=== PATIENT | female | born 1950 | race Caucasian/White ===

== ENCOUNTER 2018-08-27 00:41 | Outpatient (CLI) | payer MEDICARE, SELFPAY ==
--- NOTE | 2018-08-27 13:02 | DI.MAMMO_ITS ---
SYMPTOMS/DIAGNOSIS: BREAST CA SCREENING, Z12.31 MAMMOGRAMS: Mammograms were interpreted according to the usual protocol including computer analysis with CAD system, tomosynthesis and C view imaging. Comparison is with the prior examinations. No suspicious masses or microcalcifications are seen. There are stable calcifications seen within the right breast. The skin and axillae are unremarkable. IMPRESSION: No evidence for malignancy. Yearly mammography is recommended. Category 2, breast density C. MQSA ASSESSMENT OF FINDINGS: Negative with benign findings. Category 2. Patient will receive a letter notifying them of these results. Bi-RADS category C. The breasts are heterogeneously dense, which may obscure small masses.
== END 2018-08-27 01:01 ==
PROVIDERS: PCP Family Medicine; Visit Provider Family Medicine
DX: Z12.31 Encounter for screening mammogram for malignant neoplasm of breast (principal)
CPT/HCPCS: 77063; 77067

== ENCOUNTER 2018-12-19 08:02 | Outpatient (REF) | payer MEDICARE, SELFPAY | END 2018-12-19 08:22 | LOC: LBN 08:02 | PROVIDERS: PCP Family Medicine; Visit Provider Family Medicine Adult Medicine | DX: Z11.8 Encounter for screening for other infectious and parasitic diseases (principal); Z11.6 Encounter for screening for other protozoal diseases and helminthiases; Z11.0 Encounter for screening for intestinal infectious diseases; B94.8 Sequelae of other specified infectious and parasitic diseases | CPT/HCPCS: 87169; 87177 ==

== ENCOUNTER 2019-01-24 01:18 | Outpatient (CLI) | payer MEDICARE, SELFPAY ==
[2019-01-24 07:43] LABS: HCT 41.8 % (36.0-46.0); HGB 14.3 g/dL (12.0-15.5); Mean Corp. HGB Concentration 34.2 g/dL (32.0-36.0); Mean Corpuscular Volume 87.6 fL (80-95); Mean Platelet Volume 9.3 fL (8.0-11.0); Platelet Count 210 x1000/uL (130-400); RBC 4.77 m/cumm (4.00-5.20); RBC Distribution Width 13.4 % (11.7-14.6); White Blood Cell Count 4.23 k/cumm (4.4-10.8)
[2019-01-24 09:19] LABS: ALT 48 U/L (12-78); AST 33 U/L (15-37); Albumin 4.1 g/dL (3.4-5.0); Alkaline Phosphatase 63 U/L (46-116); Anion Gap 8.1 mmol/L (3-11); BUN 12 mg/dL (7-18); Bilirubin, Total 0.4 mg/dL (0.2-1.0); CO2 29.9 mmol/L (21.0-32.0); CREATININE 0.71 mg/dL (0.55-1.02); Calcium 9.2 mg/dL (8.5-10.1); Chloride 106 mmol/L (98-107); Cholesterol 218 mg/dL (50-200); Glucose 96 mg/dL (70-100); HDL Cholesterol 101 mg/dL (40-60); LDL CHOLESTEROL 93 mg/dL (<100); Potassium 4.1 mmol/L (3.5-5.1); Sodium 144 mmol/L (136-145); Total Protein 7.2 g/dL (6.4-8.2); Triglyceride 65 mg/dL (30-150); Vitamin B12 1441 pg/mL (193-986)
[2019-01-24 21:29] LABS: CRP, High Sensitivity 1.63 mg/L
[2019-01-27 14:11] LABS: Vitamin D 25 Total 63.9 ng/ml (30-100)
== END 2019-01-24 01:38 ==
PROVIDERS: PCP Family Medicine; Visit Provider Family Medicine Adult Medicine
DX: I10 Essential (primary) hypertension (principal); B60.0 Babesiosis; R53.83 Other fatigue; E78.2 Mixed hyperlipidemia; R79.82 Elevated C-reactive protein (CRP); Z79.2 Long term (current) use of antibiotics; Z13.21 Encounter for screening for nutritional disorder; Z13.6 Encounter for screening for cardiovascular disorders
CPT/HCPCS: 36415; 80053; 80061; 82306; 83721; 85027; 86141; 82607

== ENCOUNTER → 2019-05-01 11:23 | Outpatient (BNVA) | payer MEDICARE, SELFPAY | PROVIDERS: PCP Family Medicine; Referring Provider Family Medicine; Visit Provider Physical Therapy Assistant | DX: Z12.11 Encounter for screening for malignant neoplasm of colon (principal); Z86.010 Personal history of colon polyps; I10 Essential (primary) hypertension ==

== ENCOUNTER 2019-05-20 07:44 | Day surgery (SDC) | payer MEDICARE, SELFPAY ==
--- NOTE | 2019-05-20 06:49 | W.COLOREPORT ---
Date of service: 05/20/19 Time of Service: :33 Colonoscopy Report Date of procedure: 05/20/19 Pre-op diagnosis general: Hx of colon polyps Post-op diagnosis procedure note: other (Sigmoid diverticulosis) Procedure: Colonoscopy Surgeon: Gisela Dorsey Anesthesia proc note operative: other (General/ ASA 2/Valarie Ellis CRNA) Estimated blood loss (mL): 0 Pathology: none sent Complications: None Disposition: same day Indications: Mrs. Fernando is a pleasant 68-year-old female who was seen in the office for a follow-up colonoscopy. Her last colonoscopy was in 2009 and she was noted to have a serrated adenoma. Risks, benefits and complications have been reviewed. Complications include but are not limited to bleeding, pain, perforation, missed small lesion/polyp, sore throat, aspiration and adverse reaction to the medications. Questions were entertained and answered to their satisfaction and they wished to proceed. No guarantees were given or implied. Prep: Miralax/Dulcolax Procedure Start Time: :33 Procedure End Time: :59 Retraction Time: 19 minutes Findings: Mild sigmoid diverticulosis Procedure Description: After informed consent was obtained the patient was taken to the procedure room and placed in a left decubitous position. Monitors were applied and a time out was done. The patients name, date of , procedure, allergies to medications and metal in their body was reviewed. The patient was then sedated. Once sedated and comfortable a rectal exam was done. External exam was normal. Internal exam revealed a normal sphincter tone and no palpable masses. The scope was then introduced and retro-flexed. No internal hemorrhoids were identified. The scope was then advanced to the cecum without difficulty. The TI and appendiceal orifice were identified. The prep was adequate. The scope was then slowly retracted over 19 minutes back into the rectum. There were no polyps and no signs of inflammation. Patient did have mild sigmoid diverticulosis. The scope was removed and the patient was woken up and taken back to Same day surgery in stable condition. The patient tolerated the procedure well and there were no immediate complications. Follow up: The patient should follow up as needed if she develops changes in bowel habits or other new gastrointestinal complaints.
--- NOTE | 2019-05-20 06:51 | W.PM.DSUDISC ---
Discharge Plan Disposition Patient Disposition: HOME Condition: Good Discharge Details Reason For Visit: Colon Cancer Screening Attending Provider: Gisela Dorsey Primary Care Provider: Pam Arnett Home Meds and New Rx's Prescriptions: Continued cholecalciferol (vitamin D3) 1,000 unit capsule 3,000 unit PO DAILY RF: 0 atp fuel 2 cap PO DAILY RF: 0 valacyclovir [Valtrex] 500 mg tablet 500 mg PO DAILY RF: 0 milk thistle 175 mg tablet 175 mg PO TID RF: 0 coratin PO BID RF: 0 albuterol sulfate [Ventolin HFA] 90 mcg/actuation HFA aerosol inhaler 1 inh IH ONCE PRNRF: 0 tumeric PO BID RF: 0 omega-3 fatty acids [Fish Oil Concentrate] 1,000 mg capsule 1,000 mg PO BID RF: 0 magnesium amino acid chelate 27 mg tablet 75 mg PO HS RF: 0 cbd oil PO QHS RF: 0 cbd silk topical PRNRF: 0 Restasis 0.05 % dropperette 1 drp OP Q12H RF: 0 dexamethasone 0.5 mg/5 mL elixir 0.5 mg PO BID PRNRF: 0 PROGONOL 0.25 tsp Topical BID RF: 0 Women's 50+ Daily Form (gkb) 1 EACH tablet 2 ea PO DAILY RF: 0 hydrochlorothiazide 12.5 MG tablet 12.5 mg PO DAILY Qty: 90 RF: 4 ALOE NUTRITIONAL 120 ML liquid 2 oz PO BID RF: 0 diphenhydramine-acetaminophen [Tylenol PM Extra Strength] 25-500 mg Tablet 2 tab PO HS PRNRF: 0 Restasis 0.05 % Dropperette 1 drp OPHTHALMIC (EYE) BID RF: 0 No Action Refresh Repair 0.5-0.9 % Drops 1 drp OPHTHALMIC (EYE) BID-QID PRNRF: 0 Discharge Instructions Instructions: Colonoscopy (GEN), Diverticulosis (ED) Additional Instructions: Findings: Diverticulosis Follow up: as needed Please call if you develop: fevers >101.5 Nausea or Vomiting Abdominal pain that is not transient DAY SURGERY UNIT POST COLONOSCOPY INSTRUCTIONS 1. Because there will be medication in your system for the next 24 hours, you may feel a little sleepy. Your coordination will be affected. Therefore: a. Do not drive or operate dangerous equipment for 24 hours. b. Do not drink alcohol beverages for 24 hours (not even beer). c. Plan to go home and rest for the day. 2. Generally there are no restrictions on your activity after a day or so has gone by, but you may feel a bit fatigued for a few days. 3 After you arrive home you may have a light meal and return to a normal diet as you can tolerate it without feeling sick to your stomach. 4. After surgery, you may feel pain or discomfort. This should be only transient, but if it persists please contact your doctor. 5. If there are any questions regarding the findings of your procedure, please feel free to contact your doctor. 6. If you are unable to contact your doctor with a problem, contact the hospital at [phone]. 7. Continue all your regular medications unless directed otherwise. I understand the above instructions and have no questions. Signature of Patient or Responsible Adult Escort Date/Time Name of Responsible Adult Escort Signature of Nurse Date/Time Activity:: Activity as Tolerated Diet:: high fiber diet Discharge Orders Discharge Orders: Discharge Order (Routine); Ordered 05/20/19 Ordered By: Gisela Dorsey DS: Diagnosis Discharge Diagnosis (1) S/P colonoscopy: (2) Diverticulosis:
[2019-05-20 08:04] VITALS: BP 130/69; PULSE 67; RESP 16; TEMP 36.5; O2SAT 98
[2019-05-20 08:19] VITALS: BP 130/69; PULSE 67; RESP 16; TEMP 36.5; O2SAT 98
[2019-05-20] MEDS: Lactated Ringers 1,000 ML 80 ML IV (08:30)
[2019-05-20] MEDS: Lidocaine 2% Pres-Free 5 ML VIAL (09:30)
[2019-05-20] MEDS: PROPOFOL 500 MG/50 ML BTL 287 MG (09:30)
[2019-05-20 10:38] VITALS: BP 99/49; PULSE 57; RESP 16; TEMP 36; O2SAT 99
== END 2019-05-20 11:10 | disposition home or self-care (01) ==
PROVIDERS: PCP Family Medicine; Visit Provider Surgery
PROC: 0DJD8ZZ Inspection of Lower Intestinal Tract, Via Natural or Artificial Opening Endoscopic (ICD-10-PCS; CPT 45378; principal; 2019-05-20 09:15)
DX: Z12.11 Encounter for screening for malignant neoplasm of colon (principal); Z86.010 Personal history of colon polyps; K57.30 Diverticulosis of large intestine without perforation or abscess without bleeding; I10 Essential (primary) hypertension
CPT/HCPCS: G0105

== ENCOUNTER 2020-02-26 10:29 | Outpatient (CLI) | payer MEDICARE, SELFPAY ==
[2020-02-27 15:31] LABS: COVID-19 RT-PCR Result NEGATIVE (Negative)
== END 2020-02-26 10:49 ==
PROVIDERS: PCP Family Medicine; Visit Provider Nurse Practitioner Family
DX: R05 Cough (principal)
CPT/HCPCS: U0003

== ENCOUNTER 2020-11-18 09:45 | Emergency (ER) | payer MEDICARE, MEDICAID, SELFPAY ==
[2020-11-18 09:49] VITALS: BP 166/62; PULSE 110; TEMP 37; O2SAT 98
--- NOTE | 2020-11-18 10:10 | ED.GENADUL_ITS ---
Discharge Plan Disposition Patient Disposition: HOME Condition: Improving Discharge Details Clinical Impression: Tear of left supraspinatus tendon Primary Care Provider: Pam Arnett ED Provider: Wm Moreno Home Meds and New Rx's Prescriptions: New oxycodone-acetaminophen [Percocet] 5-325 mg tablet 1 tab PO Q6H PRN (Reason: pain) Qty: 7 RF: 0 Continued cholecalciferol (vitamin D3) 1,000 unit capsule 3,000 unit PO DAILY RF: 0 atp fuel 2 cap PO DAILY RF: 0 valacyclovir [Valtrex] 500 mg tablet 500 mg PO DAILY RF: 0 milk thistle 175 mg tablet 175 mg PO TID RF: 0 coratin PO BID RF: 0 albuterol sulfate [Ventolin HFA] 90 mcg/actuation HFA aerosol inhaler 1 inh IH ONCE PRNRF: 0 tumeric PO BID RF: 0 omega-3 fatty acids [Fish Oil Concentrate] 1,000 mg capsule 1,000 mg PO BID RF: 0 magnesium amino acid chelate 27 mg tablet 75 mg PO HS RF: 0 cbd oil PO QHS RF: 0 cbd silk topical PRNRF: 0 Restasis 0.05 % dropperette 1 drp OP Q12H RF: 0 dexamethasone 0.5 mg/5 mL elixir 0.5 mg PO QID RF: 0 PROGONOL 0.25 tsp Topical BID RF: 0 Women's 50+ Daily Form (gkb) 1 EACH tablet 2 ea PO DAILY RF: 0 hydrochlorothiazide 12.5 MG tablet 12.5 mg PO DAILY Qty: 90 RF: 4 ALOE NUTRITIONAL 120 ML liquid 2 oz PO BID RF: 0 pimecrolimus 1 % cream 1 applic TOPICAL BID PRNRF: 0 lidocaine-prilocaine 2.5-2.5 % cream 1 applic topical BID PRNRF: 0 dicyclomine 20 mg Tablet 10 mg PO TID RF: 0 benzonatate 100 mg capsule 100 mg PO TID PRNRF: 0 Prevalite 4 gram Powder In Packet 4 g PO DAILY RF: 0 diphenhydramine-acetaminophen [Tylenol PM Extra Strength] 25-500 mg Tablet 2 tab PO HS PRNRF: 0 Restasis 0.05 % Dropperette 1 drp OPHTHALMIC (EYE) BID RF: 0 Refresh Repair 0.5-0.9 % Drops 1 drp OPHTHALMIC (EYE) BID-QID PRNRF: 0 Discharge Instructions Additional Instructions: Please continue use of sling as needed for comfort. Follow-up in orthopedics. The office number is [id number]. Tylenol as needed for pain or may use Percocet, as prescribed as needed for severe pain. Do not take both Percocet and Tylenol at the same time. Return for any acute concerns. Referrals: Arias Cabrales MD [ [facility] STAFF PHYSICIAN] - Medical Decision Making 70-year-old female presents from home with report of fall on October 18 in which she used her ski poles to awkwardly lift herself out of deep snow. She then developed severe left shoulder pain which has been persistent. She was seen by her primary care physician in [facility] and an outpatient x-ray was obtained and negative. I did review the x-ray which she had brought on a compact disc. Given the persistence of the patient's pain, high level of concern for rotator cuff injury given her exam, she was referred for MRI which reveals left supraspinatus tendon tear. Patient improved following analgesia. She requested discharge to home. She will require follow-up in orthopedic clinic. [facility] General Mode of arrival: ambulatory . Date/Time Provider Initiated Documentation: 11/18/20 09:46 . Limitations to Documentation: no limitations . Information obtained by: patient . History of Present Illness 70 year old F presents to the emergency department with the chief complaint of Left shoulder pain since fall on October 18, described as moderate, Quality is described as dull and constant, and is localized to the left and upper extremity. Patient reports no radiation. Patient started experiencing this day(s) and it has been intermittent. Rest improves symptom(s), Movement worsens symptoms . Patient notes weakness. Patient did receive the following treatments prior to arrival, cold therapy Related Data Home Medications Medication Instructions Recorded Confirmed Progonol 0.25 tsp TOPICAL BID 01/15/13 05/20/19 Women's 50+ Daily Form (gkb) 2 ea PO DAILY 09/08/14 11/18/20 hydrochlorothiazide 12.5 mg PO DAILY #90 tab-cap 03/23/15 11/18/20 ALOE NUTRITIONAL 2 oz PO BID 05/01/19 05/20/19 albuterol sulfate 90 mcg/actuation 1 inh IH ONCE PRN 05/01/19 11/18/20 aerosol inhaler atp fuel 2 cap PO DAILY 05/01/19 05/20/19 cbd oil PO QHS 05/01/19 cbd silk TOPICAL PRN 05/01/19 cholecalciferol (vitamin D3) 25 3,000 unit PO DAILY 05/01/19 11/18/20 mcg (1,000 unit) capsule coratin PO BID 05/01/19 cyclosporine 0.05 % eye drops in a 1 drp OP Q12H 05/01/19 05/01/19 dropperette dexamethasone 0.5 mg/5 mL oral 0.5 mg PO QID 05/01/19 11/18/20 elixir magnesium amino acid chelate 27 mg 75 mg PO HS 05/01/19 11/18/20 tablet milk thistle 175 mg tablet 175 mg PO TID tab 05/01/19 11/18/20 omega-3 fatty acids 1,000 mg 1,000 mg PO BID 05/01/19 11/18/20 capsule tumeric PO BID 05/01/19 valacyclovir 500 mg tablet 500 mg PO DAILY 05/01/19 11/18/20 Restasis 1 drp OPHTHALMIC (EYE) BID 05/15/19 11/18/20 diphenhydramine-acetaminophen 2 tab PO HS PRN 05/15/19 11/18/20 [Tylenol PM Extra Strength] Refresh Repair 1 drp OPHTHALMIC (EYE) BID-QID PRN 05/20/19 11/18/20 Prevalite 4 g PO DAILY 11/18/20 11/18/20 benzonatate 100 mg PO TID PRN 11/18/20 11/18/20 dicyclomine 10 mg PO TID 11/18/20 11/18/20 lidocaine-prilocaine 1 applic TOPICAL BID PRN 11/18/20 11/18/20 oxycodone-acetaminophen [Percocet] 1 tab PO Q6H PRN #7 tab 11/18/20 pimecrolimus 1 applic TOPICAL BID PRN 11/18/20 11/18/20 Previous Rx's Medication Instructions Recorded oxycodone-acetaminophen [Percocet] 1 tab PO Q6H PRN #7 tab 11/18/20 Allergies Allergy/AdvReac Type Severity Reaction Status Date / Time latex Allergy Unknown ITCHING Verified 11/18/20 09:55 atorvastatin AdvReac Other (See Verified 11/18/20 09:55 Comment) NSAIDS (Non-Steroidal AdvReac Swelling/Ed Verified 11/18/20 09:55 Anti-Inflamma ny pravastatin AdvReac MYALGIA ; Verified 11/18/20 09:55 DIARRHEA simvastatin AdvReac DIARRHEA Verified 11/18/20 09:55 General Stated Complaint: Orthopedic DIPAK: 4 Review of Systems Narrative: No other injury. She is otherwise been well. 6 systems reviewed and negative. No numbness, tingling. Reports weakness in inability to lift overhead left side [facility] Medical History Babesiosis 1987 Blepharitis of both eyes Diverticulosis HTN (hypertension) Hyperlipidemia Non-alcoholic fatty liver disease Oral lichen planus Osteoarthritis knee Shingles 01/13/2019 Zoon's vulvitis 2004 Surgical History Cholecystectomy (~02/2010) History of cataract extraction with lens replacement bilaterally Hx of arthroscopy of left knee meniscus repair Hx of biopsy vulvar punch biopsy S/P colonoscopy 2010- sessile serrated adenoma Family History Mother Essential hypertension Diabetes Heart disease Hyperlipidemia Father Essential hypertension Diabetes Heart disease Hyperlipidemia Sister Personal history of malignant neoplasm CERVICAL Hyperlipidemia Grandfather Heart disease Grandfather No problems noted. Grandmother Heart disease Grandmother Essential hypertension Diabetes Heart disease Hyperlipidemia Social History (Updated 05/01/19 @ 11:54 by Celina Alas RN) Smoking/Tobacco Use Status: Former Tobacco Use Quit Date: 10/15/72 Smoking risk assessment performed?: Yes Alcohol Intake: never Drug use: Never Substance use type: does not use Do you feel safe at home: Yes Do you feel safe in your relationship?: Yes Exam Narrative Exam Narrative: GEN: awake, alert, oriented 3. Pleasant, well groomed, interactive. HEAD: Normocephalic, atraumatic ENT: Mucous membranes moist, oropharynx unremarkable, External ear exam unremarkable EYES: PERRL, EOMI NECK: Full ROM, no FANY, no menigismus CHEST/RESP: Nontender, clear to auscultation bilateral, no wheeze/rhonchi/rales CARDIOVASCULAR: RRR, no murmur, rub veronica. 2+ Rad pulse bilateral EXT: No edema or rash. Normal capillary refill. Right upper extremity unremarkable. Left upper extremity with weakness in abduction of the humerus. Patient is unable to perform empty can test. Tenderness along left supraspinatus posteriorly. Distal motor function normal with normal sensation. Neuro: Grossly normal neurologic exam, conversant, interactive. Psych: Speech fluent, thoughts congruent, affect normal Course Vital Signs Vital signs: Vital Signs Temperature 37.0 C 11/18/20 09:49 Pulse 110 H 11/18/20 09:49 Blood Pressure 166/62 H 11/18/20 09:49 Pulse Oximetry 98 11/18/20 09:49 Temperature 37.0 C 11/18/20 09:49 Temperature Source Temporal Artery Scan 11/18/20 09:49 Pulse 110 H 11/18/20 09:49 Respiratory Effort Non-Labored 11/18/20 09:53 Blood Pressure 166/62 H 11/18/20 09:49 Blood Pressure Position Sitting 11/18/20 09:49 Pulse Oximetry 98 11/18/20 09:49 Oxygen Delivery Method Room Air 11/18/20 09:49 Oxygen Flow Rate 0 11/18/20 09:49 Pain Level 8 11/18/20 09:49
--- NOTE | 2020-11-18 10:25 | DI.MRI_ITS ---
EXAM: MR UPPER JOINT LT WO CLINICAL HISTORY: Fall, L shoulder pain, r/o rotator cuff inj. TECHNIQUE: Multiplanar multisequence MRI was performed. COMPARISON: No exams were available for comparison FINDINGS: BONES: There is no fracture or contusion pattern. Small subchondral cyst in the humeral head laterall y. JOINTS: Moderate degenerative changes are seen at the acromioclavicular joint. The glenohumeral join t is normal. TENDONS: Supraspinatus: There is a small bursal surface tear of the supraspinatus tendon anteriorly at its ins ertion site. There is tendinosis of the supraspinatus tendon. Infraspinatus: There is tendinosis of the infraspinatus tendon. Subscapularis: Unremarkable. Teres Minor: Unremarkable. Biceps and Minerva: Unremarkable. MUSCLES: Unremarkable. GLENOID LABRUM: Unremarkable on this noncontrast examination. SOFT TISSUES: Unremarkable. LIGAMENTS: Unremarkable. OTHER: There is a small amount of fluid in the subacromial subdeltoid bursa. A small amount of fluid is seen in the subcoracoid bursa. IMPRESSION: 1. Partial tear of the supraspinatus tendon anteriorly at its insertion site. 2. Tendinosis of the supraspinatus and infraspinatus tendons. 3. Small amount of fluid in the subacromial subdeltoid bursa. 4. Degenerative changes at the acromioclavicular joint. 5. Findings were discussed with the emergency department on the date of the examination. DATA REPOSITORY:
[2020-11-18] MEDS: oxyCODONE 5 mg/Acetaminophen 325 mg TAB 1 TAB PO (10:33)
[2020-11-18 11:33] VITALS: BP 138/63; PULSE 83; RESP 18; TEMP 37; O2SAT 96
[2020-11-18 15:05] VITALS: BP 128/62; PULSE 80; RESP 16; TEMP 37; O2SAT 96
[2020-11-18] MEDS: oxyCODONE 5 mg/Acetaminophen 325 mg TAB 2 TAB PO (15:05)
== END 2020-11-18 15:12 | disposition home or self-care (01) ==
PROVIDERS: Emergency Provider Emergency Medicine; PCP Family Medicine
DX: S46.012A Strain of muscle(s) and tendon(s) of the rotator cuff of left shoulder, initial encounter (principal); Y93.29 Activity, other involving ice and snow
CPT/HCPCS: 99284; 73221

== ENCOUNTER → 2020-11-23 09:38 | Outpatient (BNVA) | payer MEDICARE, MEDICAID, SELFPAY | PROVIDERS: PCP Family Medicine; Referring Provider Family Medicine; Visit Provider Student in an Organized Health Care Education/Training Program | DX: M75.102 Unspecified rotator cuff tear or rupture of left shoulder, not specified as traumatic (principal); M75.52 Bursitis of left shoulder; M75.42 Impingement syndrome of left shoulder; M75.22 Bicipital tendinitis, left shoulder | CPT/HCPCS: 99204; 99214 ==

== ENCOUNTER 2021-01-11 03:06 | Outpatient (CLI) | payer MEDICARE, MEDICAID, SELFPAY ==
[2021-01-11 10:39] LABS: Source Nasal/Nares
[2021-01-11 16:17] LABS: COVID-19 PCR Negative (Negative)
== END 2021-01-11 03:07 | disposition home or self-care (01) ==
LOC: LBO 03:07
PROVIDERS: PCP Family Medicine; Visit Provider Orthopaedic Surgery
DX: Z20.822 Contact with and (suspected) exposure to COVID-19 (principal); Z01.818 Encounter for other preprocedural examination
CPT/HCPCS: 87635

== ENCOUNTER 2021-04-22 11:10 | Emergency (ER) | payer MEDICARE, MEDICAID, SELFPAY ==
[2021-04-22 11:28] VITALS: BP 122/83; PULSE 99; RESP 16; TEMP 36.9; O2SAT 96
--- NOTE | 2021-04-22 12:00 | ED.GENADUL_ITS ---
Discharge Plan Disposition Patient Disposition: HOME Condition: Good Discharge Details Clinical Impression: Facial lesion Primary Care Provider: Pam Arnett ED Provider: Gladys Ortega Home Meds and New Rx's Prescriptions: New cephalexin 500 mg capsule 500 mg PO QID Qty: 28 RF: 0 Continued valacyclovir [Valtrex] 500 mg tablet 500 mg PO DAILY RF: 0 milk thistle 175 mg tablet 175 mg PO TID RF: 0 albuterol sulfate [Ventolin HFA] 90 mcg/actuation HFA aerosol inhaler 1 inh IH ONCE PRNRF: 0 cbd silk topical PRNRF: 0 dexamethasone 0.5 mg/5 mL elixir 0.5 mg PO QID PRNRF: 0 cholecalciferol (vitamin D3) 25 mcg (1,000 unit) capsule 5,000 unit PO DAILY RF: 0 Citrucel 500 mg tablet 1,000 mg PO BID RF: 0 mupirocin 2 % ointment 1 applic topical BID Qty: 15 RF: 0 hydrochlorothiazide 12.5 MG tablet 12.5 mg PO DAILY Qty: 90 RF: 4 Women's 50+ Daily Form (gkb) 400-120 mcg-mg tablet 1 tab PO DAILY RF: 0 pimecrolimus 1 % cream 1 applic TOPICAL BID PRNRF: 0 lidocaine-prilocaine 2.5-2.5 % cream 1 applic topical BID PRNRF: 0 dicyclomine 20 mg Tablet 10 mg PO TID RF: 0 benzonatate 100 mg capsule 100 mg PO TID PRNRF: 0 Prevalite 4 gram Powder In Packet 4 g PO DAILY RF: 0 oxycodone-acetaminophen [Percocet] 5-325 mg tablet 1 tab PO Q6H PRN (Reason: pain) Qty: 7 RF: 0 Restasis 0.05 % Dropperette 1 drp OPHTHALMIC (EYE) BID RF: 0 Refresh Repair 0.5-0.9 % Drops 1 drp OPHTHALMIC (EYE) BID-QID PRNRF: 0 Discharge Instructions Additional Instructions: Please follow-up with your primary care physician or schedule appointment on Sunday should this persist, you must have additional evaluation and possible biopsy at the discretion of your doctor Continue to antibiotics, I have supplied you with a new antibiotic Return for new or worsening complaints including fever, chills, spreading redness, or with any new or worsening complaints Discharge Data Discharge Date/Time-TO BE ENTERED AT DEPARTURE: 04/22/21 12:12 Medical Decision Making No obvious abscess or cellulitis, residual papule, low suspicion for sinus involvement No evidence of intraoral involvement Keflex prescription applied Patient is taking probiotics Will need follow-up with surgery or dermatology with persistent symptoms, concern regarding papular lesion, if this does not infectious, may need biopsy, patient made aware Discharged home in stable condition with stable vitals Given a threshold to return with new or worsening complaints Indication for CT imaging at this time, no evidence of erysipelas No diabetes history Medical Records Medical records reviewed: Yes I reviewed the patient's medical records. HPI General Mode of arrival: ambulatory . Date/Time Provider Initiated Documentation: 04/22/21 11:54 . Limitations to Documentation: no limitations . Information obtained by: patient . HPI Narrative: 70-year-old female presents with left-sided facial lesion. She has had it for approximately 2 weeks. She said prescription improved but is concerned because of persistent. She states that it may be painful. She denies any difficulty swelling, chest pain, shortness of breath. She states that there is increasing drainage from it last week since resolved. She states she is concerned because she is almost completed but her Bactrim prescription. She has been on this for approximately 10 days reportedly. She denies any chest pain, shortness of breath, difficulty swallowing, or any additional complaints at this time. She denies any vision change or headache. Denies any dental pain. Related Data Home Medications Medication Instructions Recorded Confirmed hydrochlorothiazide 12.5 mg PO DAILY #90 tab-cap 03/23/15 04/05/21 albuterol sulfate 90 mcg/actuation 1 inh IH ONCE PRN 05/01/19 04/05/21 aerosol inhaler cbd silk TOPICAL PRN 05/01/19 04/05/21 milk thistle 175 mg tablet 175 mg PO TID tab 05/01/19 04/05/21 valacyclovir 500 mg tablet 500 mg PO DAILY 05/01/19 04/05/21 Restasis 1 drp OPHTHALMIC (EYE) BID 05/15/19 04/05/21 Refresh Repair 1 drp OPHTHALMIC (EYE) BID-QID PRN 05/20/19 04/05/21 Prevalite 4 g PO DAILY 11/18/20 04/05/21 benzonatate 100 mg PO TID PRN 11/18/20 04/05/21 dicyclomine 10 mg PO TID 11/18/20 04/05/21 lidocaine-prilocaine 1 applic TOPICAL BID PRN 11/18/20 04/05/21 oxycodone-acetaminophen [Percocet] 1 tab PO Q6H PRN #7 tab 11/18/20 04/05/21 pimecrolimus 1 applic TOPICAL BID PRN 11/18/20 04/05/21 cholecalciferol (vitamin D3) 25 5,000 unit PO DAILY cap 11/23/20 04/05/21 mcg (1,000 unit) capsule dexamethasone 0.5 mg/5 mL oral 0.5 mg PO QID PRN 11/23/20 04/05/21 elixir methylcellulose (laxative) 500 mg 1,000 mg PO BID tab 11/23/20 04/05/21 tablet multivitamin with [id number] 1 tab PO DAILY tab 11/23/20 04/05/21 400 mcg-120 mg tablet mupirocin 2 % topical ointment 1 applic TOPICAL BID #15 g 04/05/21 04/05/21 cephalexin 500 mg PO QID #28 cap 04/22/21 Previous Rx's Medication Instructions Recorded oxycodone-acetaminophen [Percocet] 1 tab PO Q6H PRN #7 tab 11/18/20 mupirocin 2 % topical ointment 1 applic TOPICAL BID #15 g 04/05/21 cephalexin 500 mg PO QID #28 cap 04/22/21 Allergies Allergy/AdvReac Type Severity Reaction Status Date / Time latex Allergy Unknown ITCHING Verified 04/05/21 12:06 atorvastatin AdvReac Myalgia Verified 04/05/21 12:23 and diarrhea NSAIDS (Non-Steroidal AdvReac Swelling/Edema, Verified 04/05/21 12:23 Anti-Inflamma upper eyelids pravastatin AdvReac MYALGIA ; Verified 04/05/21 12:06 DIARRHEA simvastatin AdvReac Diarrhea, Verified 04/05/21 12:23 pt reports she got colitis General Stated Complaint: Cellulitis DIPAK: 3 Review of Systems All systems reviewed & are unremarkable except as noted in HPI and below PFSH Medical History Babesiosis 1987 Blepharitis of both eyes Diverticulosis HTN (hypertension) Hyperlipidemia Non-alcoholic fatty liver disease Oral lichen planus Osteoarthritis knee Shingles 01/13/2019 Zoon's vulvitis 2004 Surgical History Cholecystectomy (~02/2010) History of cataract extraction with lens replacement bilaterally Hx of arthroscopy of left knee meniscus repair Hx of biopsy vulvar punch biopsy S/P colonoscopy 2009- sessile serrated adenoma Family History Mother Essential hypertension Diabetes Heart disease Hyperlipidemia Father Essential hypertension Diabetes Heart disease Hyperlipidemia Sister Personal history of malignant neoplasm CERVICAL Hyperlipidemia Grandfather Heart disease Grandfather No problems noted. Grandmother Heart disease Grandmother Essential hypertension Diabetes Heart disease Hyperlipidemia Social History (Updated 05/01/19 @ 11:54 by Celina Alas RN) Smoking/Tobacco Use Status: Former Tobacco Use Quit Date: 10/15/72 Smoking risk assessment performed?: Yes Alcohol Intake: never Drug use: Never Substance use type: does not use Current gender identity: female Do you feel safe at home: Yes Do you feel safe in your relationship?: Yes Exam Const General: cooperative and no acute distress HENMT Other: Small lesion noted to left maxillary region, no erythema, no fluctuance, no significant swelling or erythema, no intraoral involvement papular, rounded margins, no crepitus Eyes Pupils: PERRL Resp Effort & Inspection: normal respiratory effort Cardio Rate: regular rate Skin Other: See above Neuro General: patient alert and patient oriented x3 Course Vital Signs Vital signs: Vital Signs Temperature 36.9 C 04/22/21 11:28 Pulse 99 H 04/22/21 11:28 Respiratory Rate 16 04/22/21 11:28 Blood Pressure 122/83 04/22/21 11:28 Pulse Oximetry 96 04/22/21 11:28 Temperature 36.9 C 04/22/21 11:28 Temperature Source Skin 04/22/21 11:28 Pulse 99 H 04/22/21 11:28 Respiratory Rate 16 04/22/21 11:28 Blood Pressure 122/83 04/22/21 11:28 Blood Pressure Position Sitting 04/22/21 11:28 Pulse Oximetry 96 04/22/21 11:28 Oxygen Delivery Method Room Air 04/22/21 11:28 Oxygen Flow Rate 0 04/22/21 11:28 Pain Level 2 04/22/21 11:28
== END 2021-04-22 12:12 | disposition home or self-care (01) ==
PROVIDERS: Emergency Provider Physician Assistant; PCP Family Medicine
DX: L98.8 Other specified disorders of the skin and subcutaneous tissue (principal)
CPT/HCPCS: 99283

== ENCOUNTER 2021-04-26 16:31 | Outpatient (REF) | payer MEDICARE, MEDICAID, SELFPAY ==
[2021-04-26 21:12] LABS: ALT 29 U/L (14-59); AST 23 U/L (15-37); Albumin 4.3 g/dL (3.4-5.0); Alkaline Phosphatase 66 U/L (46-116); Anion Gap 13.2 mmol/L (3-11); BUN 13 mg/dL (7-18); Bilirubin, Total 0.3 mg/dL (0.2-1.0); CO2 25.8 mmol/L (21.0-32.0); CREATININE 0.7 mg/dL (0.55-1.02); Calcium 9.4 mg/dL (8.5-10.1); Chloride 104 mmol/L (98-107); Glucose 98 mg/dL (74-106); Potassium 3.6 mmol/L (3.5-5.1); Sodium 143 mmol/L (136-145); Total Protein 7.4 g/dL (6.4-8.2)
[2021-04-27 20:07] LABS: Calculated LDL 160 mg/dL (<100); Cholesterol 267 mg/dL (<200); HDL Cholesterol 89 mg/dL (40-60); Triglyceride 91 mg/dL (<150)
== END 2021-04-26 16:32 | disposition home or self-care (01) ==
LOC: NCHCN 16:31
PROVIDERS: PCP Family Medicine; Visit Provider Nurse Practitioner Family
DX: E78.5 Hyperlipidemia, unspecified (principal); I10 Essential (primary) hypertension
CPT/HCPCS: 80053; 80061

== ENCOUNTER 2021-06-17 02:29 | Outpatient (CLI) | payer MEDICARE, MEDICAID, SELFPAY ==
[2021-06-17 11:16] LABS: Abs Immature Grans 0.02 10^3/uL (0.0-0.06); Absolute Basophil Count 0.03 10^3/uL (0.0-0.2); Absolute Eosinophil Count 0.05 10^3/uL (0.0-0.7); Absolute Lymphocyte Count 1.89 10^3/uL (1.2-3.4); Absolute Monocyte Count 0.46 10^3/uL (0.1-0.8); Absolute Neutrophil Count 3.81 10^3/uL (1.2-6.7); Basophils % 0.5; Eosinophils % 0.8; HCT 41.7 % (36.0-46.0); HGB 13.7 g/dL (11.2-15.7); Immature Grans % 0.3; Lymphocytes % 30.2; MCH 30.4 pg (27.0-33.0); MCHC 32.9 % (32.0-36.0); MCV 92.5 fL (80-95); MPV 9.4 fL (8.0-11.0); Monocytes % 7.3; Neutrophils % 60.9; Nucleated RBC 0 %; Platelet Count 192 10^3/uL (130-400); RBC 4.51 10^6/uL (3.93-5.22); RDW 13.2 % (11.7-14.6); RDW-SD 45.1 fL; WBC 6.26 10^3/uL (4.4-10.8)
[2021-06-17 12:58] LABS: ALT 46 U/L (14-59); AST 28 U/L (15-37); Albumin 4.1 g/dL (3.4-5.0); Alkaline Phosphatase 66 U/L (46-116); Anion Gap 11.8 mmol/L (3-11); BUN 18 mg/dL (7-18); Bilirubin, Total 0.6 mg/dL (0.2-1.0); CO2 26.2 mmol/L (21.0-32.0); CREATININE 0.7 mg/dL (0.55-1.02); Calcium 9.1 mg/dL (8.5-10.1); Chloride 104 mmol/L (98-107); Glucose 105 mg/dL (74-106); Potassium 3.6 mmol/L (3.5-5.1); Sodium 142 mmol/L (136-145)
== END 2021-06-17 02:30 | disposition home or self-care (01) ==
LOC: LBO 02:29
PROVIDERS: PCP Family Medicine; Visit Provider Naturopath
DX: L08.9 Local infection of the skin and subcutaneous tissue, unspecified (principal); Z79.2 Long term (current) use of antibiotics
CPT/HCPCS: 36415; 80053; 85025

== ENCOUNTER 2021-06-27 16:33 | Outpatient (REF) | payer MEDICARE, MEDICAID, SELFPAY ==
[2021-06-29 13:02] LABS: Campylobacter PCR Negative (Negative); Salmonella PCR Negative (Negative); Shiga Toxin PCR Negative (Negative); Shigella/Enteroinvasive Ecoli Negative (Negative)
== END 2021-06-27 16:34 | disposition home or self-care (01) ==
LOC: LBN 16:33
PROVIDERS: PCP Family Medicine; Visit Provider Naturopath
DX: R19.7 Diarrhea, unspecified (principal)
CPT/HCPCS: 87329; 87493; 87505

== ENCOUNTER 2021-06-28 10:50 | Outpatient (REF) | payer MEDICARE, MEDICAID, SELFPAY ==
[2021-06-28 15:00] LABS: C Diff PCR Negative (Negative)
== END 2021-06-28 10:51 | disposition home or self-care (01) ==
LOC: LBN 10:50
PROVIDERS: PCP Family Medicine; Referring Provider Naturopath; Visit Provider Naturopath
DX: R19.7 Diarrhea, unspecified (principal)
CPT/HCPCS: 87493

== ENCOUNTER 2021-07-29 02:34 | Outpatient (CLI) | payer MEDICARE, MEDICAID, SELFPAY ==
[2021-07-29 09:35] LABS: Abs Immature Grans 0.07 10^3/uL (0.0-0.06); Absolute Basophil Count 0.04 10^3/uL (0.0-0.2); Absolute Eosinophil Count 0.11 10^3/uL (0.0-0.7); Absolute Lymphocyte Count 1.54 10^3/uL (1.2-3.4); Absolute Monocyte Count 0.45 10^3/uL (0.1-0.8); Absolute Neutrophil Count 2.39 10^3/uL (1.2-6.7); Basophils % 0.9; Eosinophils % 2.4; HCT 41.5 % (36.0-46.0); HGB 13.6 g/dL (11.2-15.7); Immature Grans % 1.5; Lymphocytes % 33.5; MCH 31.1 pg (27.0-33.0); MCHC 32.8 % (32.0-36.0); MPV 9.1 fL (8.0-11.0); Monocytes % 9.8; Neutrophils % 51.9; Nucleated RBC 0 %; Platelet Count 164 10^3/uL (130-400); RBC 4.37 10^6/uL (3.93-5.22); RDW 12.8 % (11.7-14.6); RDW-SD 44.5 fL
[2021-07-29 10:13] LABS: ALT 64 U/L (14-59); AST 34 U/L (15-37); Albumin 4.2 g/dL (3.4-5.0); Alkaline Phosphatase 62 U/L (46-116); Anion Gap 6.8 mmol/L (3-11); BUN 14 mg/dL (7-18); Bilirubin, Total 0.4 mg/dL (0.2-1.0); CO2 31.2 mmol/L (21.0-32.0); CREATININE 0.8 mg/dL (0.55-1.02); Calcium 9.3 mg/dL (8.5-10.1); Calculated LDL 63 mg/dL (<100); Chloride 106 mmol/L (98-107); Cholesterol 202 mg/dL (<200); Glucose 91 mg/dL (74-106); HDL Cholesterol 111 mg/dL (40-60); Potassium 3.8 mmol/L (3.5-5.1); Sodium 144 mmol/L (136-145); Total Protein 7.3 g/dL (6.4-8.2); Triglyceride 143 mg/dL (<150)
== END 2021-07-29 02:35 | disposition home or self-care (01) ==
LOC: LBO 02:35
PROVIDERS: PCP Family Medicine; Visit Provider Naturopath
DX: E78.5 Hyperlipidemia, unspecified (principal); Z79.2 Long term (current) use of antibiotics
CPT/HCPCS: 36415; 80053; 80061; 85027; 85025

== ENCOUNTER 2021-08-26 03:59 | Outpatient (CLI) | payer MEDICARE, MEDICAID, SELFPAY ==
[2021-08-26 11:11] LABS: Abs Immature Grans 0.05 10^3/uL (0.0-0.06); Absolute Basophil Count 0.03 10^3/uL (0.0-0.2); Absolute Lymphocyte Count 1.93 10^3/uL (1.2-3.4); Absolute Monocyte Count 0.51 10^3/uL (0.1-0.8); Absolute Neutrophil Count 2.85 10^3/uL (1.2-6.7); Basophils % 0.5; Eosinophils % 1.8; HCT 42.5 % (36.0-46.0); Immature Grans % 0.9; Lymphocytes % 35.3; MCH 31.2 pg (27.0-33.0); MCHC 32.9 % (32.0-36.0); MCV 94.7 fL (80-95); MPV 9.2 fL (8.0-11.0); Monocytes % 9.3; Neutrophils % 52.2; Nucleated RBC 0 %; Platelet Count 178 10^3/uL (130-400); RBC 4.49 10^6/uL (3.93-5.22); RDW 12.7 % (11.7-14.6); RDW-SD 44.3 fL; WBC 5.47 10^3/uL (4.4-10.8)
[2021-08-26 11:51] LABS: Calcium 9.2 mg/dL (8.5-10.1)
[2021-08-26 11:52] LABS: ALT 45 U/L (14-59); AST 31 U/L (15-37); Albumin 4.3 g/dL (3.4-5.0); Alkaline Phosphatase 66 U/L (46-116); Anion Gap 8.6 mmol/L (3-11); BUN 10 mg/dL (7-18); Bilirubin, Total 0.5 mg/dL (0.2-1.0); CO2 30.4 mmol/L (21.0-32.0); CREATININE 0.7 mg/dL (0.55-1.02); Chloride 102 mmol/L (98-107); Glucose 92 mg/dL (74-106); Potassium 3.5 mmol/L (3.5-5.1); Sodium 141 mmol/L (136-145); Total Protein 7.5 g/dL (6.4-8.2)
== END 2021-08-26 04:00 | disposition home or self-care (01) ==
LOC: LBO 03:59
PROVIDERS: PCP Nurse Practitioner Family; Visit Provider Naturopath
DX: Z79.2 Long term (current) use of antibiotics (principal); L08.9 Local infection of the skin and subcutaneous tissue, unspecified
CPT/HCPCS: 36415; 80053; 85025

== ENCOUNTER 2022-02-23 01:48 | Outpatient (CLI) | payer MEDICARE, MEDICAID, SELFPAY ==
[2022-02-23 12:44] LABS: Abs Immature Grans 0.01 10^3/uL (0.0-0.06); Absolute Basophil Count 0.03 10^3/uL (0.0-0.2); Absolute Eosinophil Count 0.14 10^3/uL (0.0-0.7); Absolute Monocyte Count 0.74 10^3/uL (0.1-0.8); Absolute Neutrophil Count 5.75 10^3/uL (1.2-6.7); Basophils % 0.4; Eosinophils % 1.7; HCT 42.6 % (36.0-46.0); Immature Grans % 0.1; Lymphocytes % 19.3; MCH 31.1 pg (27.0-33.0); MCHC 32.9 % (32.0-36.0); MCV 95 fL (80-95); MPV 9.9 fL (8.0-11.0); Monocytes % 8.9; Neutrophils % 69.6; Platelet Count 200 10^3/uL (130-400); RDW 12.7 % (11.7-14.6); RDW-SD 43.7 fL; WBC 8.27 10^3/uL (4.4-10.8)
[2022-02-23 12:57] LABS: Iron 81 ug/dL (50-170); Total Iron Binding Capacity 331 ug/dL (250-450); Transferrin Sat 24 % (15-50)
[2022-02-23 13:27] LABS: ALT 34 U/L (14-59); AST 23 U/L (15-37); Albumin 3.7 g/dL (3.4-5.0); Alkaline Phosphatase 62 U/L (46-116); Anion Gap 11.3 mmol/L (3-11); BUN 10 mg/dL (7-18); Bilirubin, Total 0.4 mg/dL (0.2-1.0); CO2 28.7 mmol/L (21.0-32.0); CREATININE 0.7 mg/dL (0.55-1.02); Calcium 9.2 mg/dL (8.5-10.1); Chloride 103 mmol/L (98-107); Ferritin 63 ng/mL (8-252); Glucose 105 mg/dL (74-106); Potassium 3.6 mmol/L (3.5-5.1); Sodium 143 mmol/L (136-145); Total Protein 6.8 g/dL (6.4-8.2); Vitamin B12 879 pg/mL (193-986)
[2022-02-24 17:42] LABS: G6PD Enzyme Activity 9.7 U/g Hb (8.0 - 11.9)
== END 2022-02-23 01:49 | disposition home or self-care (01) ==
LOC: LOS 01:48
PROVIDERS: PCP Nurse Practitioner Family; Visit Provider Naturopath
DX: Z79.2 Long term (current) use of antibiotics (principal); R53.83 Other fatigue
CPT/HCPCS: 36415; 80053; 82955; 82607; 82728; 83540; 83550; 85025

== ENCOUNTER 2022-04-13 02:17 | Outpatient (CLI) | payer MEDICARE, MEDICAID, SELFPAY ==
[2022-04-13 12:50] LABS: Abs Immature Grans 0.01 10^3/uL (0.0-0.06); Absolute Basophil Count 0.02 10^3/uL (0.0-0.2); Absolute Eosinophil Count 0.03 10^3/uL (0.0-0.7); Absolute Lymphocyte Count 1.59 10^3/uL (1.2-3.4); Absolute Neutrophil Count 3.28 10^3/uL (1.2-6.7); Basophils % 0.4; Eosinophils % 0.6; HCT 41.4 % (36.0-46.0); HGB 13.7 g/dL (11.2-15.7); Immature Grans % 0.2; Lymphocytes % 29.3; MCH 31.1 pg (27.0-33.0); MCHC 33.1 % (32.0-36.0); MCV 94 fL (80-95); MPV 9.7 fL (8.0-11.0); Monocytes % 9.2; Neutrophils % 60.3; Platelet Count 224 10^3/uL (130-400); RBC 4.41 10^6/uL (3.93-5.22); RDW 12.2 % (11.7-14.6); RDW-SD 42.8 fL; Reticulocyte 1.6 % (0.5-2.4); WBC 5.43 10^3/uL (4.4-10.8)
[2022-04-13 13:58] LABS: ALT 34 U/L (14-59); AST 37 U/L (15-37); Albumin 2.3 g/dL (3.4-5.0); Alkaline Phosphatase 55 U/L (46-116); Anion Gap 6.7 mmol/L (3-11); BUN 15 mg/dL (7-18); Bilirubin, Total 0.2 mg/dL (0.2-1.0); CO2 27.3 mmol/L (21.0-32.0); CREATININE 0.6 mg/dL (0.55-1.02); Calcium 8.9 mg/dL (8.5-10.1); Chloride 104 mmol/L (98-107); Glucose 98 mg/dL (74-106); Potassium 3.6 mmol/L (3.5-5.1); Sodium 138 mmol/L (136-145); Total Protein 5.9 g/dL (6.4-8.2)
== END 2022-04-13 02:18 | disposition home or self-care (01) ==
LOC: LOS 02:17
PROVIDERS: PCP Nurse Practitioner Family; Visit Provider Naturopath
DX: Z79.2 Long term (current) use of antibiotics (principal); L98.8 Other specified disorders of the skin and subcutaneous tissue
CPT/HCPCS: 36415; 80053; 85025; 85045

== ENCOUNTER 2022-04-20 04:12 | Outpatient (CLI) | payer MEDICARE, MEDICAID, SELFPAY ==
[2022-04-20 12:37] LABS: Abs Immature Grans 0.02 10^3/uL (0.0-0.06); Absolute Basophil Count 0.03 10^3/uL (0.0-0.2); Absolute Eosinophil Count 0.05 10^3/uL (0.0-0.7); Absolute Lymphocyte Count 1.66 10^3/uL (1.2-3.4); Absolute Monocyte Count 0.61 10^3/uL (0.1-0.8); Absolute Neutrophil Count 3.45 10^3/uL (1.2-6.7); Basophils % 0.5; Eosinophils % 0.9; HCT 41.7 % (36.0-46.0); HGB 13.7 g/dL (11.2-15.7); Immature Grans % 0.3; Lymphocytes % 28.5; MCH 31.1 pg (27.0-33.0); MCHC 32.9 % (32.0-36.0); MCV 95 fL (80-95); MPV 9.9 fL (8.0-11.0); Monocytes % 10.5; Neutrophils % 59.3; Platelet Count 238 10^3/uL (130-400); RBC 4.41 10^6/uL (3.93-5.22); RDW 12.5 % (11.7-14.6); RDW-SD 42.9 fL; Reticulocyte 2.3 % (0.5-2.4); WBC 5.82 10^3/uL (4.4-10.8)
[2022-04-20 12:51] LABS: ALT 35 U/L (14-59); AST 32 U/L (15-37); Albumin 2.2 g/dL (3.4-5.0); Alkaline Phosphatase 60 U/L (46-116); Anion Gap 5.1 mmol/L (3-11); BUN 13 mg/dL (7-18); Bilirubin, Total 0.6 mg/dL (0.2-1.0); CO2 29.9 mmol/L (21.0-32.0); CREATININE 0.7 mg/dL (0.55-1.02); Calcium 9.1 mg/dL (8.5-10.1); Chloride 101 mmol/L (98-107); Glucose 114 mg/dL (74-106); Potassium 3.5 mmol/L (3.5-5.1); Sodium 136 mmol/L (136-145); Total Protein 5.9 g/dL (6.4-8.2)
== END 2022-04-20 04:13 | disposition home or self-care (01) ==
LOC: LOS 04:12
PROVIDERS: PCP Nurse Practitioner Family; Visit Provider Naturopath
DX: Z79.2 Long term (current) use of antibiotics (principal); L08.89 Other specified local infections of the skin and subcutaneous tissue; L98.8 Other specified disorders of the skin and subcutaneous tissue
CPT/HCPCS: 36415; 80053; 85025; 85045

== ENCOUNTER 2022-04-27 02:18 | Outpatient (CLI) | payer MEDICARE, MEDICAID, SELFPAY ==
[2022-04-27 12:24] LABS: Abs Immature Grans 0.02 10^3/uL (0.0-0.06); Absolute Basophil Count 0.04 10^3/uL (0.0-0.2); Absolute Eosinophil Count 0.07 10^3/uL (0.0-0.7); Absolute Lymphocyte Count 1.64 10^3/uL (1.2-3.4); Absolute Monocyte Count 0.56 10^3/uL (0.1-0.8); Absolute Neutrophil Count 2.88 10^3/uL (1.2-6.7); Basophils % 0.8; Eosinophils % 1.3; HCT 40.9 % (36.0-46.0); HGB 13.4 g/dL (11.2-15.7); Immature Grans % 0.4; Lymphocytes % 31.5; MCH 31.5 pg (27.0-33.0); MCHC 32.8 % (32.0-36.0); MCV 96 fL (80-95); MPV 9.9 fL (8.0-11.0); Monocytes % 10.7; Neutrophils % 55.3; Platelet Count 241 10^3/uL (130-400); RBC 4.25 10^6/uL (3.93-5.22); RDW 12.6 % (11.7-14.6); RDW-SD 44.3 fL; WBC 5.21 10^3/uL (4.4-10.8)
[2022-04-27 12:44] LABS: ALT 60 U/L (14-59); AST 54 U/L (15-37); Albumin 2.4 g/dL (3.4-5.0); Alkaline Phosphatase 59 U/L (46-116); Anion Gap 6.3 mmol/L (3-11); BUN 13 mg/dL (7-18); Bilirubin, Total 0.5 mg/dL (0.2-1.0); CO2 30.7 mmol/L (21.0-32.0); CREATININE 0.7 mg/dL (0.55-1.02); Calcium 9.1 mg/dL (8.5-10.1); Chloride 103 mmol/L (98-107); Glucose 101 mg/dL (74-106); Potassium 3.6 mmol/L (3.5-5.1); Sodium 140 mmol/L (136-145); Total Protein 6.2 g/dL (6.4-8.2)
== END 2022-04-27 02:19 | disposition home or self-care (01) ==
LOC: LOS 02:18
PROVIDERS: PCP Nurse Practitioner Family; Visit Provider Naturopath
DX: L08.89 Other specified local infections of the skin and subcutaneous tissue (principal); Z79.2 Long term (current) use of antibiotics
CPT/HCPCS: 36415; 80053; 85025; 85045

== ENCOUNTER 2022-05-04 01:06 | Outpatient (CLI) | payer MEDICARE, MEDICAID, SELFPAY ==
[2022-05-04 12:35] LABS: Abs Immature Grans 0.01 10^3/uL (0.0-0.06); Absolute Basophil Count 0.04 10^3/uL (0.0-0.2); Absolute Eosinophil Count 0.06 10^3/uL (0.0-0.7); Absolute Monocyte Count 0.62 10^3/uL (0.1-0.8); Absolute Neutrophil Count 3.78 10^3/uL (1.2-6.7); Basophils % 0.7; HCT 37.3 % (36.0-46.0); HGB 12.3 g/dL (11.2-15.7); Immature Grans % 0.2; MCH 31.8 pg (27.0-33.0); MCV 96 fL (80-95); MPV 10.2 fL (8.0-11.0); Monocytes % 10.3; Neutrophils % 62.8; Platelet Count 213 10^3/uL (130-400); RBC 3.87 10^6/uL (3.93-5.22); RDW 12.9 % (11.7-14.6); Reticulocyte 2.5 % (0.5-2.4); WBC 6.01 10^3/uL (4.4-10.8)
[2022-05-04 12:54] LABS: ALT 60 U/L (14-59); AST 52 U/L (15-37); Albumin 2.5 g/dL (3.4-5.0); Alkaline Phosphatase 60 U/L (46-116); Anion Gap 7.1 mmol/L (3-11); BUN 12 mg/dL (7-18); Bilirubin, Total 0.5 mg/dL (0.2-1.0); CO2 29.9 mmol/L (21.0-32.0); CREATININE 0.7 mg/dL (0.55-1.02); Calcium 9.3 mg/dL (8.5-10.1); Chloride 102 mmol/L (98-107); Glucose 96 mg/dL (74-106); Potassium 3.5 mmol/L (3.5-5.1); Sodium 139 mmol/L (136-145); Total Protein 5.9 g/dL (6.4-8.2)
== END 2022-05-04 01:07 | disposition home or self-care (01) ==
LOC: LOS 01:07
PROVIDERS: PCP Nurse Practitioner Family; Visit Provider Naturopath
DX: Z79.2 Long term (current) use of antibiotics (principal); Z13.89 Encounter for screening for other disorder
CPT/HCPCS: 36415; 80053; 85025; 85045

== ENCOUNTER 2022-05-10 02:51 | Outpatient (CLI) | payer MEDICARE, MEDICAID, SELFPAY ==
[2022-05-10 12:19] LABS: Abs Immature Grans 0.02 10^3/uL (0.0-0.06); Absolute Basophil Count 0.04 10^3/uL (0.0-0.2); Absolute Eosinophil Count 0.04 10^3/uL (0.0-0.7); Absolute Lymphocyte Count 1.57 10^3/uL (1.2-3.4); Absolute Monocyte Count 0.52 10^3/uL (0.1-0.8); Absolute Neutrophil Count 3.12 10^3/uL (1.2-6.7); Basophils % 0.8; Eosinophils % 0.8; HCT 37.8 % (36.0-46.0); HGB 12.5 g/dL (11.2-15.7); Immature Grans % 0.4; Lymphocytes % 29.6; MCH 31.9 pg (27.0-33.0); MCHC 33.1 % (32.0-36.0); MCV 96 fL (80-95); MPV 9.7 fL (8.0-11.0); Monocytes % 9.8; Neutrophils % 58.6; Platelet Count 214 10^3/uL (130-400); RBC 3.92 10^6/uL (3.93-5.22); RDW 13.4 % (11.7-14.6); RDW-SD 47.3 fL; WBC 5.31 10^3/uL (4.4-10.8)
[2022-05-10 12:47] LABS: ALT 57 U/L (14-59); AST 41 U/L (15-37); Albumin 2.5 g/dL (3.4-5.0); Alkaline Phosphatase 60 U/L (46-116); BUN 11 mg/dL (7-18); Bilirubin, Total 0.5 mg/dL (0.2-1.0); CREATININE 0.7 mg/dL (0.55-1.02); Calcium 9.1 mg/dL (8.5-10.1); Chloride 103 mmol/L (98-107); Glucose 130 mg/dL (74-106); Potassium 3.6 mmol/L (3.5-5.1); Sodium 138 mmol/L (136-145); Total Protein 5.9 g/dL (6.4-8.2)
== END 2022-05-10 02:52 | disposition home or self-care (01) ==
LOC: LOS 02:51
PROVIDERS: PCP Nurse Practitioner Family; Visit Provider Naturopath
DX: L08.89 Other specified local infections of the skin and subcutaneous tissue (principal); Z79.2 Long term (current) use of antibiotics
CPT/HCPCS: 36415; 80053; 85025; 85045

== ENCOUNTER 2022-05-18 02:59 | Outpatient (CLI) | payer MEDICARE, MEDICAID, SELFPAY ==
[2022-05-18 12:24] LABS: Abs Immature Grans 0.02 10^3/uL (0.0-0.06); Absolute Basophil Count 0.03 10^3/uL (0.0-0.2); Absolute Eosinophil Count 0.06 10^3/uL (0.0-0.7); Absolute Lymphocyte Count 1.55 10^3/uL (1.2-3.4); Absolute Monocyte Count 0.48 10^3/uL (0.1-0.8); Absolute Neutrophil Count 2.77 10^3/uL (1.2-6.7); Basophils % 0.6; Eosinophils % 1.2; HCT 37.5 % (36.0-46.0); HGB 12.8 g/dL (11.2-15.7); Immature Grans % 0.4; Lymphocytes % 31.6; MCH 32.5 pg (27.0-33.0); MCHC 34.1 % (32.0-36.0); MCV 95 fL (80-95); Monocytes % 9.8; Neutrophils % 56.4; Platelet Count 214 10^3/uL (130-400); RBC 3.94 10^6/uL (3.93-5.22); RDW 13.7 % (11.7-14.6); RDW-SD 48.3 fL; WBC 4.91 10^3/uL (4.4-10.8)
[2022-05-18 12:43] LABS: ALT 66 U/L (14-59); AST 48 U/L (15-37); Albumin 2.5 g/dL (3.4-5.0); Alkaline Phosphatase 62 U/L (46-116); Anion Gap 6.3 mmol/L (3-11); BUN 17 mg/dL (7-18); Bilirubin, Total 0.4 mg/dL (0.2-1.0); CO2 29.7 mmol/L (21.0-32.0); CREATININE 0.7 mg/dL (0.55-1.02); Calcium 8.7 mg/dL (8.5-10.1); Chloride 101 mmol/L (98-107); Glucose 133 mg/dL (74-106); Potassium 3.4 mmol/L (3.5-5.1); Sodium 137 mmol/L (136-145); Total Protein 6.1 g/dL (6.4-8.2)
== END 2022-05-18 03:00 | disposition home or self-care (01) ==
LOC: LOS 02:59
PROVIDERS: PCP Nurse Practitioner Family; Visit Provider Naturopath
DX: Z79.2 Long term (current) use of antibiotics (principal); L08.89 Other specified local infections of the skin and subcutaneous tissue
CPT/HCPCS: 80053; 85025; 85045

== ENCOUNTER 2022-05-25 01:36 | Outpatient (CLI) | payer MEDICARE, MEDICAID, SELFPAY ==
[2022-05-25 12:45] LABS: Abs Immature Grans 0.01 10^3/uL (0.0-0.06); Absolute Basophil Count 0.03 10^3/uL (0.0-0.2); Absolute Eosinophil Count 0.04 10^3/uL (0.0-0.7); Absolute Lymphocyte Count 1.47 10^3/uL (1.2-3.4); Absolute Monocyte Count 0.43 10^3/uL (0.1-0.8); Absolute Neutrophil Count 2.88 10^3/uL (1.2-6.7); Basophils % 0.6; Eosinophils % 0.8; HCT 36.8 % (36.0-46.0); HGB 12.5 g/dL (11.2-15.7); Immature Grans % 0.2; Lymphocytes % 30.2; MCH 32.6 pg (27.0-33.0); MCV 96 fL (80-95); MPV 9.8 fL (8.0-11.0); Monocytes % 8.8; Neutrophils % 59.4; Platelet Count 179 10^3/uL (130-400); RBC 3.83 10^6/uL (3.93-5.22); RDW 13.7 % (11.7-14.6); RDW-SD 48.2 fL; Reticulocyte 2.9 % (0.5-2.4); WBC 4.86 10^3/uL (4.4-10.8)
[2022-05-25 13:08] LABS: ALT 48 U/L (14-59); AST 42 U/L (15-37); Albumin 2.7 g/dL (3.4-5.0); Alkaline Phosphatase 53 U/L (46-116); Anion Gap 7.3 mmol/L (3-11); BUN 12 mg/dL (7-18); Bilirubin, Total 0.5 mg/dL (0.2-1.0); CO2 29.7 mmol/L (21.0-32.0); CREATININE 0.5 mg/dL (0.55-1.02); Calcium 9.1 mg/dL (8.5-10.1); Chloride 103 mmol/L (98-107); Glucose 99 mg/dL (74-106); Potassium 3.6 mmol/L (3.5-5.1); Sodium 140 mmol/L (136-145); Total Protein 6.1 g/dL (6.4-8.2)
== END 2022-05-25 01:37 | disposition home or self-care (01) ==
LOC: LOS 01:37
PROVIDERS: PCP Nurse Practitioner Family; Visit Provider Naturopath
DX: L08.89 Other specified local infections of the skin and subcutaneous tissue; Z79.2 Long term (current) use of antibiotics
CPT/HCPCS: 36415; 80053; 85025; 85045

== ENCOUNTER 2022-06-01 03:35 | Outpatient (CLI) | payer MEDICARE, MEDICAID, SELFPAY ==
[2022-06-01 12:41] LABS: Abs Immature Grans 0.02 10^3/uL (0.0-0.06); Absolute Basophil Count 0.03 10^3/uL (0.0-0.2); Absolute Eosinophil Count 0.04 10^3/uL (0.0-0.7); Absolute Lymphocyte Count 1.26 10^3/uL (1.2-3.4); Absolute Monocyte Count 0.42 10^3/uL (0.1-0.8); Basophils % 0.6; Eosinophils % 0.8; HGB 12.5 g/dL (11.2-15.7); Immature Grans % 0.4; Lymphocytes % 24.9; MCH 32.1 pg (27.0-33.0); MCHC 32.9 % (32.0-36.0); MCV 97 fL (80-95); MPV 9.7 fL (8.0-11.0); Monocytes % 8.3; Platelet Count 197 10^3/uL (130-400); RDW 13.8 % (11.7-14.6); RDW-SD 49.3 fL; Reticulocyte 2.8 % (0.5-2.4); WBC 5.07 10^3/uL (4.4-10.8)
[2022-06-01 12:57] LABS: ALT 45 U/L (14-59); AST 39 U/L (15-37); Albumin 2.7 g/dL (3.4-5.0); Alkaline Phosphatase 57 U/L (46-116); Anion Gap 7.5 mmol/L (3-11); BUN 15 mg/dL (7-18); Bilirubin, Total 0.3 mg/dL (0.2-1.0); CO2 29.5 mmol/L (21.0-32.0); CREATININE 0.6 mg/dL (0.55-1.02); Calcium 8.6 mg/dL (8.5-10.1); Chloride 104 mmol/L (98-107); Glucose 107 mg/dL (74-106); Potassium 3.4 mmol/L (3.5-5.1); Sodium 141 mmol/L (136-145); Total Protein 6.3 g/dL (6.4-8.2)
== END 2022-06-01 03:36 | disposition home or self-care (01) ==
LOC: LOS 03:35
PROVIDERS: PCP Nurse Practitioner Family; Visit Provider Naturopath
DX: L08.89 Other specified local infections of the skin and subcutaneous tissue (principal); Z79.2 Long term (current) use of antibiotics
CPT/HCPCS: 36415; 80053; 85025; 85045

== ENCOUNTER 2022-06-08 03:03 | Outpatient (CLI) | payer MEDICARE, MEDICAID, SELFPAY ==
[2022-06-08 12:35] LABS: Abs Immature Grans 0.02 10^3/uL (0.0-0.06); Absolute Basophil Count 0.03 10^3/uL (0.0-0.2); Absolute Eosinophil Count 0.06 10^3/uL (0.0-0.7); Absolute Lymphocyte Count 1.44 10^3/uL (1.2-3.4); Absolute Neutrophil Count 3.06 10^3/uL (1.2-6.7); Basophils % 0.6; Eosinophils % 1.2; HCT 37.1 % (36.0-46.0); HGB 12.5 g/dL (11.2-15.7); Immature Grans % 0.4; Lymphocytes % 28.2; MCH 33.2 pg (27.0-33.0); MCHC 33.7 % (32.0-36.0); MCV 99 fL (80-95); MPV 9.9 fL (8.0-11.0); Monocytes % 9.8; Neutrophils % 59.8; Platelet Count 186 10^3/uL (130-400); RBC 3.76 10^6/uL (3.93-5.22); RDW 13.7 % (11.7-14.6); RDW-SD 49.4 fL; Reticulocyte 2.8 % (0.5-2.4); WBC 5.11 10^3/uL (4.4-10.8)
[2022-06-08 12:52] LABS: ALT 43 U/L (14-59); AST 44 U/L (15-37); Albumin 2.8 g/dL (3.4-5.0); Alkaline Phosphatase 57 U/L (46-116); BUN 11 mg/dL (7-18); Bilirubin, Total 0.6 mg/dL (0.2-1.0); CREATININE 0.6 mg/dL (0.55-1.02); Calcium 8.8 mg/dL (8.5-10.1); Chloride 105 mmol/L (98-107); Glucose 101 mg/dL (74-106); Potassium 3.7 mmol/L (3.5-5.1); Sodium 141 mmol/L (136-145); Total Protein 6.3 g/dL (6.4-8.2)
== END 2022-06-08 03:04 | disposition home or self-care (01) ==
LOC: LOS 03:03
PROVIDERS: PCP Nurse Practitioner Family; Visit Provider Naturopath
DX: Z79.2 Long term (current) use of antibiotics (principal); L08.89 Other specified local infections of the skin and subcutaneous tissue
CPT/HCPCS: 36415; 80053; 85025; 85045

== ENCOUNTER 2022-06-16 15:35 | Outpatient (REF) | payer MEDICARE, MEDICAID, SELFPAY ==
[2022-06-16 20:56] LABS: C Diff PCR Negative (Negative)
== END 2022-06-16 15:36 | disposition home or self-care (01) ==
LOC: LBN 15:35
PROVIDERS: PCP Nurse Practitioner Family; Visit Provider Naturopath
DX: R19.7 Diarrhea, unspecified (principal)
CPT/HCPCS: 87329; 87493; 87505

== ENCOUNTER 2022-06-22 17:44 | Outpatient (REF) | payer MEDICARE, MEDICAID, SELFPAY ==
[2022-06-24 11:00] LABS: Campylobacter PCR Negative (Negative); Salmonella PCR Negative (Negative); Shiga Toxin PCR Negative (Negative); Shigella/Enteroinvasive Ecoli Negative (Negative)
[2022-06-24 17:58] LABS: Calprotectin <50.0 mcg/g
== END 2022-06-22 17:45 | disposition home or self-care (01) ==
LOC: LBN 17:44
PROVIDERS: PCP Nurse Practitioner Family; Visit Provider Naturopath
DX: R19.7 Diarrhea, unspecified (principal)
CPT/HCPCS: 87329; 87493; 87505; 83993; 87177

== ENCOUNTER 2022-06-28 13:36 | Outpatient (REF) | payer MEDICARE, MEDICAID, SELFPAY ==
--- NOTE | 2022-06-28 11:40 | SKI_PTH ---
PATIENT: Lian Fernando LOC: [facility] U#:[id number] AGE/SX: 71/F ROOM: RE06/28/[address]: Ananda Vyas MD : [id number] BED: DIS: 06/28/2022 SPEC #: [id number] RECD: 06/28/22 16:23 STATUS: HANK REQ #: [id number] JESICA: 06/28/22 11:[address]: Ananda Vyas DEPT: Surgical Specimen RECD BY: Gladys Gustafson ENTERED: 06/28/22 16:24 SP TYPE: ALDA QUINTANA DR: Lily Tadeo Tissues: 1 - SKIN BIOPSY(SHAVE/PUNCH) Procedures: SKIN LEVEL 4 Comments: [id number]
== END 2022-06-28 13:37 | disposition home or self-care (01) ==
LOC: LBN 13:36
PROVIDERS: PCP Nurse Practitioner Family; Visit Provider Otolaryngology
DX: L72.8 Other follicular cysts of the skin and subcutaneous tissue (principal)
CPT/HCPCS: 88305

== ENCOUNTER 2022-06-30 01:51 | Outpatient (CLI) | payer MEDICARE, MEDICAID, SELFPAY ==
[2022-06-30 11:12] LABS: Abs Immature Grans 0.01 10^3/uL (0.0-0.06); Absolute Basophil Count 0.03 10^3/uL (0.0-0.2); Absolute Eosinophil Count 0.03 10^3/uL (0.0-0.7); Absolute Lymphocyte Count 1.43 10^3/uL (1.2-3.4); Absolute Monocyte Count 0.42 10^3/uL (0.1-0.8); Absolute Neutrophil Count 2.95 10^3/uL (1.2-6.7); Basophils % 0.6; Eosinophils % 0.6; HCT 39.3 % (36.0-46.0); HGB 13.2 g/dL (11.2-15.7); Immature Grans % 0.2; Lymphocytes % 29.4; MCH 32.4 pg (27.0-33.0); MCHC 33.6 % (32.0-36.0); MCV 97 fL (80-95); MPV 9.1 fL (8.0-11.0); Monocytes % 8.6; Neutrophils % 60.6; Platelet Count 205 10^3/uL (130-400); RBC 4.07 10^6/uL (3.93-5.22); WBC 4.87 10^3/uL (4.4-10.8)
[2022-06-30 11:16] LABS: Reticulocyte 1.2 % (0.5-2.4)
[2022-06-30 12:03] LABS: ALT 46 U/L (14-59); AST 37 U/L (15-37); Albumin 3.1 g/dL (3.4-5.0); Alkaline Phosphatase 53 U/L (46-116); BUN 14 mg/dL (7-18); Bilirubin, Total 0.2 mg/dL (0.2-1.0); CREATININE 0.7 mg/dL (0.55-1.02); Calcium 9.2 mg/dL (8.5-10.1); Chloride 103 mmol/L (98-107); Estimated GFR 91.26 (mL/min/1.73m2); Glucose 97 mg/dL (74-106); Potassium 3.4 mmol/L (3.5-5.1); Sodium 140 mmol/L (136-145); Total Protein 6.5 g/dL (6.4-8.2)
== END 2022-06-30 01:52 | disposition home or self-care (01) ==
LOC: LBO 01:51
PROVIDERS: PCP Nurse Practitioner Family; Visit Provider Naturopath
DX: Z79.2 Long term (current) use of antibiotics (principal); L08.89 Other specified local infections of the skin and subcutaneous tissue
CPT/HCPCS: 36415; 80053; 85045; 85025

== ENCOUNTER 2022-09-21 14:48 | Outpatient (REF) | payer MEDICARE, MEDICAID, SELFPAY ==
[2022-09-21 15:13] LABS: Potassium 3.6 mmol/L (3.5-5.1)
== END 2022-09-21 14:49 | disposition home or self-care (01) ==
LOC: NCHCN 14:48
PROVIDERS: PCP Nurse Practitioner Family; Visit Provider Nurse Practitioner Family
DX: E87.6 Hypokalemia (principal)
CPT/HCPCS: 84132

== ENCOUNTER 2023-07-10 18:14 | Outpatient (REF) | payer MEDICARE, MEDICAID, SELFPAY ==
[2023-07-10 22:05] LABS: HGB 13.7 g/dL (11.2-15.7); MCH 30.6 pg (27.0-33.0); MCHC 33.4 % (32.0-36.0); MCV 92 fL (80-95); MPV 9.8 fL (8.0-11.0); Platelet Count 210 10^3/uL (130-400); RBC 4.48 10^6/uL (3.93-5.22); RDW 12.1 % (11.7-14.6); RDW-SD 40.7 fL; WBC 4.84 10^3/uL (4.4-10.8)
[2023-07-10 22:30] LABS: ALT 28 U/L (14-59); AST 24 U/L (15-37); Albumin 4.2 g/dL (3.4-5.0); Alkaline Phosphatase 71 U/L (46-116); Anion Gap 12.1 mmol/L (3-11); BUN 12 mg/dL (7-18); Bilirubin, Total 0.4 mg/dL (0.2-1.0); CO2 25.9 mmol/L (21.0-32.0); CREATININE 0.7 mg/dL (0.55-1.02); Calcium 9.6 mg/dL (8.5-10.1); Calculated LDL 81 mg/dL (<100); Chloride 100 mmol/L (98-107); Cholesterol 190 mg/dL (<200); Glucose 96 mg/dL (74-106); HDL Cholesterol 86 mg/dL (40-60); Potassium 3.8 mmol/L (3.5-5.1); Sodium 138 mmol/L (136-145); TSH (W/Ref FT4) 1.45 uIU/mL (0.36-3.74); Total Protein 7.4 g/dL (6.4-8.2); Triglyceride 116 mg/dL (<150)
[2023-07-11 18:37] LABS: Vitamin B12 655 pg/mL (193-986)
== END 2023-07-10 18:15 | disposition home or self-care (01) ==
LOC: NCHCN 18:14
PROVIDERS: PCP Nurse Practitioner Family; Visit Provider Nurse Practitioner Family
DX: Z00.00 Encounter for general adult medical examination without abnormal findings (principal); K58.9 Irritable bowel syndrome, unspecified
CPT/HCPCS: 80053; 80061; 82306; 85027; 82607; 84443

== ENCOUNTER 2024-07-11 12:25 | Outpatient (REF) | payer MEDICARE, MEDICAID, SELFPAY ==
[2024-07-11 15:03] LABS: HCT 42.5 % (36.0-46.0); MCH 30.8 pg (27.0-33.0); MCHC 32.9 % (32.0-36.0); MCV 94 fL (80-95); MPV 9.4 fL (8.0-11.0); Platelet Count 212 10^3/uL (130-400); RBC 4.54 10^6/uL (3.93-5.22); RDW 13.2 % (11.7-14.6); RDW-SD 45.2 fL; WBC 5.18 10^3/uL (4.4-10.8)
[2024-07-11 16:06] LABS: ALT 31 U/L (14-59); AST 24 U/L (15-37); Albumin 4.2 g/dL (3.4-5.0); Alkaline Phosphatase 73 U/L (46-116); BUN 14 mg/dL (7-18); Bilirubin, Total 0.43 mg/dL (0.2-1.0); CREATININE 0.8 mg/dL (0.55-1.02); Calcium 9.5 mg/dL (8.5-10.1); Calculated LDL 75 mg/dL (<100); Chloride 103 mmol/L (98-107); Cholesterol 215 mg/dL (<200); Estimated GFR 76.79 (mL/min/1.73m2); Glucose 144 mg/dL (74-106); HDL Cholesterol 124 mg/dL (40-60); Potassium 3.2 mmol/L (3.5-5.1); Sodium 140 mmol/L (136-145); TSH (W/Ref FT4) 1.11 uIU/mL (0.36-3.74); Total Protein 7.3 g/dL (6.4-8.2); Triglyceride 80 mg/dL (<150); Vitamin D 25 Total 41.4 ng/mL (30-100)
== END 2024-07-11 12:26 | disposition home or self-care (01) ==
LOC: NCHCN 12:25
PROVIDERS: PCP Nurse Practitioner Family; Visit Provider Nurse Practitioner Family
DX: E78.5 Hyperlipidemia, unspecified (principal); E04.1 Nontoxic single thyroid nodule; E55.9 Vitamin D deficiency, unspecified
CPT/HCPCS: 80053; 80061; 82306; 85027; 84443

== ENCOUNTER 2024-09-05 15:20 | Outpatient (CLI) | payer MEDICARE, MEDICAID, SELFPAY ==
--- NOTE | 2024-09-05 | DI.CT_ITS ---
Exam(s) CT CHEST PE CTA EXAM: CT CHEST PE CTA CLINICAL HISTORY: Dyspnea, R06.00. TECHNIQUE: Imaging Protocol: CT angiography of the chest was performed using pulmonary embolus shobha col. Multi planar reconstructions were performed. CONTRAST MATERIAL: Intravenous: Omnipaque 350 Contrast volume: 100 cc COMPARISON: CR CHEST 2 VIEWS PA,LAT from 08/30/2012 FINDINGS: CHEST: PULMONARY ARTERIES: There are no intraluminal filling defects to suggest acute pulmonary emboli. LUNGS: There are no infiltrates nor evidence of pulmonary infarction.. No ominous pulmonary nodules e vident. MEDIASTINUM: There is no hilar nor mediastinal adenopathy. CARDIAC: Heart size normal. There is no pericardial effusion.No significant shift interventricular s eptum. No IV contrast reflux into the intrahepatic IVC. Diameter of the ascending thoracic aorta is normal there is no evidence of aortic dissection. PARTIALLY VISUALIZED UPPERMOST ABDOMEN: No adrenal masses. Nonobstructive millimeter calculus in sup erior pole left kidney noted. Previous cholecystectomy. There are 2 hypodense areas in the partiall y included liver measuring up to 1.8 cm. Not possible to accurately assess these findings on this ty pe of study. OSSEOUS: No significant osseous lesions.. IMPRESSION: 1. No evidence of acute pulmonary emboli. No evidence of pulmonary infarction.No pleural effusions. No lung masses 2. No evidence of aortic dissection nor pericardial effusion. 3. Two hypodense lesions are noted in the liver which are not possible to be assessed on this type of study. However, I note that in reviewing this patient's prior imaging studies there is an ultrasoun d of August 2012 which reveals a probable 2 cm hemangioma as well as the liver cyst which probably correspond to these findings. RADIATION DOSE DELIVERED: 60.88mGy.cm Total DLP DATA REPOSITORY: All CT scans at this facility are submitted to the National Radiology Data Registry (NRDR) Dose Index Registry (DIR) with the [employer] ([employer]). RADIATION OPTIMIZATION: All CT scans at this facility use at least one of these dose optimization te chniques: automated exposure control; mA and/or kV adjustment per patient size (includes targeted exa ms where dose is matched to clinical indication); or iterative reconstruction.
[2024-09-05] MEDS: Normal Saline - Diluent 50 ML VIAL IJ (15:43)
[2024-09-05] MEDS: Omnipaque 350 MG/ML 100 ML BTL 70 ML IJ (15:54)
== END 2024-09-05 15:40 ==
PROVIDERS: PCP Nurse Practitioner Family; Visit Provider Nurse Practitioner Family
DX: R06.00 Dyspnea, unspecified (principal)
CPT/HCPCS: 71275; J3490

== ENCOUNTER 2024-11-01 21:41 | Emergency (ER) | payer MEDICARE, MEDICAID, SELFPAY ==
[2024-11-01] VITALS (23 sets, daily range): BP systolic 128–188; BP diastolic 55–162; PULSE 84–121; RESP 11–41; TEMP 36.3; O2SAT 93–100
--- NOTE | 2024-11-01 21:50 | ED.GENADUL_ITS ---
Discharge Plan Discharge Details Chief Complaint: Allergic Primary Care Provider: Lily Tadeo ED Provider: Celena Dee Home Meds and New Rx's Prescriptions: No Action valacyclovir [Valtrex] 500 mg tablet 500 mg PO DAILY milk thistle 175 mg tablet 175 mg PO TID albuterol sulfate [Ventolin HFA] 90 mcg/actuation HFA aerosol inhaler 1 inh IH ONCE PRN cbd silk topical PRN Rx Instructions: topical cream dexamethasone 0.5 mg/5 mL elixir 0.5 mg PO QID PRN Rx Instructions: rinse and spit Citrucel 500 mg tablet 1,000 mg PO QHS Saccharomyces boulardii 10 billion cell capsule PO BID Rx Instructions: 3 Billion Systane Complete 0.6 % drops 1 drp ophthalmic (eye) DAILY PRN multivitamin Tablet 1 tab PO DAILY valacyclovir [Valtrex] 500 mg tablet 1,000 mg PO DAILY cyclosporine [Restasis] 0.05 % dropperette 1 drp ophthalmic (eye) Q12H gabapentin 300 mg capsule 300 mg PO QHS Citrucel 500 mg tablet 1,000 mg PO DAILY formula 303 PO vitality boost PO hydrochlorothiazide 12.5 MG tablet 12.5 mg PO DAILY Qty: 90 acetylcysteine [NAC] PO potassium chloride 40 mEq/15 mL liquid 20 meq PO DAILY rosuvastatin 10 mg tablet 10 mg PO DAILY meclizine 25 mg tablet 25 mg PO DAILY PRN Systane Ultra (PF) 0.4-0.3 % dropperette 1 drp ophthalmic (eye) DAILY PRN acetaminophen [Tylenol Extra Strength] 500 mg tablet 1,000 mg PO Q6H PRN simethicone [Gas-X] PO TID alpha lipoic acid 300 mg capsule 600 mg PO QAM gabapentin 300 mg capsule 300 mg PO DAILY lysine 500 mg tablet 1,000 mg PO BID naltrexone 4.5 mg PO QHS pimecrolimus 1 % cream 1 applic TOPICAL BID PRN Patient Comments: APPLY TO AFFECTED AREA S TWO TIMES A DAY FOR 42 DAYS lidocaine-prilocaine 2.5-2.5 % cream 1 applic topical BID PRN Patient Comments: APPLY TOPICALLY DIRECTED TO THE AFFECTED AREA TWO TIMES A DAY NEEDED benzonatate 100 mg capsule 100 mg PO TID PRN Patient Comments: TAKE ONE CAPSULE BY MOUTH THREE TIMES A DAY NEEDED oxycodone-acetaminophen [Percocet] 5-325 mg tablet 1 tab PO Q6H PRN (Reason: pain) Qty: 7 0RF dicyclomine 20 mg tablet 10 mg PO TID cyclosporine [Restasis] 0.05 % Dropperette 1 drp OPHTHALMIC (EYE) BID Refresh Repair 0.5-0.9 % Drops 1 drp OPHTHALMIC (EYE) BID-QID PRN HPI General Mode of arrival: EMS . Date/Time Provider Initiated Documentation: 11/01/24 21:49 . Limitations to Documentation: no limitations . Information obtained by: patient, EMS, RN notes reviewed and old records reviewed . HPI Narrative: 73-year-old female presents to the ER with a chief complaint of possible allergic reaction. Patient reports that she just started Symbicort which she started on she did use this inhaler around 6 PM this evening around 8 PM she noticed a rash on her forehead, lip swelling and swelling around her eyes and some wheezing in her upper airway. Her and her son pulled over on the side of the road called 911. EMS administered 0.3 of epinephrine subcu prior to arrival which improved her symptoms. She no longer has any upper airway wheezing. They did place her on some oxygen. She is satting 100% on room air at this time. She did take 50 mg of Benadryl p.o. at 2014 prior to arrival at home. She does have known allergies to latex atorvastatin NSAIDs pravastatin and simvastatin Related Data Home Medications ?Medication ?Instructions ?Recorded ?Confirmed hydrochlorothiazide 12.5 mg tablet 12.5 mg PO DAILY #90 tab-caps 03/23/15 07/06/22 albuterol sulfate 90 mcg/actuation 1 inh inhalation ONCE PRN 05/01/19 07/06/22 aerosol inhaler (Ventolin HFA) cbd silk topical PRN 05/01/19 07/06/22 milk thistle 175 mg tablet 175 mg PO TID 05/01/19 07/06/22 valacyclovir 500 mg tablet 500 mg PO DAILY 05/01/19 07/06/22 (Valtrex) cyclosporine 0.05 % eye drops in a 1 drp ophthalmic (eye) BID 05/15/19 07/06/22 dropperette (Restasis) carboxymethylcellulose 0.5 1 drp ophthalmic (eye) BID-QID PRN 05/20/19 07/06/22 %-glycerin 0.9 % eye drops (Refresh Repair) benzonatate 100 mg capsule 100 mg PO TID PRN 11/18/20 07/06/22 lidocaine-prilocaine 2.5 %-2.5 % 1 applic topical BID PRN 11/18/20 07/06/22 topical cream oxycodone-acetaminophen 5 mg-325 1 tab PO Q6H PRN pain #7 tabs 11/18/20 07/06/22 mg tablet (Percocet) pimecrolimus 1 % topical cream 1 applic topical BID PRN 11/18/20 07/06/22 dexamethasone 0.5 mg/5 mL oral 0.5 mg PO QID PRN 11/23/20 07/06/22 elixir acetaminophen 500 mg tablet 1,000 mg PO Q6H PRN 03/01/22 07/06/22 (Tylenol Extra Strength) acetylcysteine [NAC] PO 03/01/22 07/06/22 meclizine 25 mg tablet 25 mg PO DAILY PRN 03/01/22 07/06/22 peg 400-propylene glycol (PF) 0.4 1 drp ophthalmic (eye) DAILY PRN 03/01/22 07/06/22 %-0.3 % eye drops in a dropperette (Systane Ultra (PF)) potassium chloride 40 mEq/15 mL 20 meq PO DAILY 03/01/22 07/06/22 oral liquid rosuvastatin 10 mg tablet 10 mg PO DAILY 03/01/22 07/06/22 simethicone [Gas-X] PO TID 03/01/22 07/06/22 Saccharomyces boulardii 10 billion cell PO BID 03/02/22 07/06/22 cell capsule alpha lipoic acid 300 mg capsule 600 mg PO QAM 03/02/22 07/06/22 dicyclomine 20 mg tablet 10 mg PO TID 03/02/22 07/06/22 gabapentin 300 mg capsule 300 mg PO DAILY 03/02/22 07/06/22 lysine 500 mg tablet 1,000 mg PO BID 03/02/22 07/06/22 methylcellulose (laxative) 500 mg 1,000 mg PO QHS 03/02/22 07/06/22 tablet (Citrucel) multivitamin 1 tab PO DAILY 03/02/22 07/06/22 naltrexone 4.5 mg PO QHS 03/02/22 07/06/22 propylene glycol 0.6 % eye drops 1 drp ophthalmic (eye) DAILY PRN 03/02/22 07/06/22 (Systane Complete) valacyclovir 500 mg tablet 1,000 mg PO DAILY 03/02/22 07/06/22 (Valtrex) cyclosporine 0.05 % eye drops in a 1 drp ophthalmic (eye) Q12H 06/28/22 07/06/22 dropperette (Restasis) formula 303 PO 06/28/22 07/06/22 gabapentin 300 mg capsule 300 mg PO QHS 06/28/22 07/06/22 methylcellulose (laxative) 500 mg 1,000 mg PO DAILY 06/28/22 07/06/22 tablet (Citrucel) vitality boost PO 06/28/22 07/06/22 Previous Rx's ?Medication ?Instructions ?Recorded oxycodone-acetaminophen 5 mg-325 1 tab PO Q6H PRN pain #7 tabs 11/18/20 mg tablet (Percocet) Allergies Allergy/AdvReac Type Severity Reaction Status Date / Time budesonide Allergy Severe Swelling/Ed Verified 11/01/24 21:53 ny latex Allergy Unknown ITCHING Verified 11/01/24 21:53 atorvastatin AdvReac Myalgia Verified 11/01/24 21:53 and diarrhea NSAIDS (Non-Steroidal AdvReac Swelling/Edema, Verified 11/01/24 21:53 Anti-Inflamma upper eyelids pravastatin AdvReac MYALGIA ; Verified 11/01/24 21:53 DIARRHEA simvastatin AdvReac Diarrhea, Verified 11/01/24 21:53 pt reports she got colitis General Stated Complaint: Allergic DIPAK: 3 Review of Systems All systems reviewed & are unremarkable except as noted in HPI and below Eyes Eyes: Reports as per HPI ENT Ears, Nose, Mouth, and Throat: Reports as per HPI, Reports lip swelling, Reports neck mass and Reports throat swelling Cardiovascular Cardiovascular: Reports dyspnea Respiratory Respiratory: Reports dyspnea and Reports wheezing Allergic/Immunologic Allergic/Immunologic: Reports as per HPI (Facial rash), Reports lip swelling, Reports throat swelling and Reports wheezing Exam Narrative Exam Narrative: Constitutional: Alert and oriented x3. Appears stated age. Normal body habitus. Patient is jittery and slightly anxious mostly attributed to the epinephrine. Head: Normocephalic, no trauma. Eyes: Pupils PERRL, Red reflex noted, EOM's intact. Eyelids symmetrical without lesions, discharge, or, mild swelling noted around her eyes bilaterally, ENT: Bilateral TM's WNL, External ear normal to inspection, no mastoid TTP, swelling, or erythema, Nasal turbinates WNL, no nasal discharge. Normal dentition, Posterior pharynx WNL, no exudate. Chest: RRR, Normal S1, S2, distal pulses intact. Resp: Lungs clear to auscultation bilaterally, no wheezes, rales, or rhonchi. Abdomen: Soft, non-distended, Normoactive bowel sounds all 4 quads. Musculoskeletal: Normal gait, Moves all 4 extremities without difficulty. Skin: No suspicious rashes or lesions. Capillary refill less than 2 sec. Neurologic: Cranial nerves II-XII intact. Alert and oriented x 3. Motor: No deficits noted. Sensory: Intact bilaterally all 4 extremities. Hematologic/Lymphatic: No ecchymosis, no lymphadenopathy. Course Vital Signs Vital signs: Vital Signs Temperature 36.3 C L 11/01/24 21:41 Pulse 94 H 11/01/24 21:41 Respiratory Rate 20 11/01/24 21:41 Blood Pressure 188/84 H 11/01/24 21:41 Pulse Oximetry 99 11/01/24 21:41 Temperature 36.3 C L 11/01/24 21:41 Temperature Source Temporal Artery Scan 11/01/24 21:41 Pulse 94 H 11/01/24 21:41 Respiratory Rate 20 11/01/24 21:41 Blood Pressure 188/84 H 11/01/24 21:41 Blood Pressure Position Sitting 11/01/24 21:41 Pulse Oximetry 99 11/01/24 21:41 Oxygen Delivery Method Room Air 11/01/24 21:41 Oxygen Flow Rate 0 11/01/24 21:41 Pain Level 0 11/01/24 21:41 Medical Decision Making 73-year-old female presents to the ER with a chief complaint of possible allergic reaction. Patient reports that she just started Symbicort which she started on she did use this inhaler around 6 PM this evening around 8 PM she noticed a rash on her forehead, lip swelling and swelling around her eyes and some wheezing in her upper airway. Her and her son pulled over on the side of the road called 911. EMS administered 0.3 of epinephrine subcu prior to arrival which improved her symptoms. She no longer has any upper airway wheezing. They did place her on some oxygen. She is satting 100% on room air at this time. She did take 50 mg of Benadryl p.o. at 2014 prior to arrival at home. She does have known allergies to latex atorvastatin NSAIDs pravastatin and simvastatin Will continue to observe patient placed on cardiac monitoring, will give Solu- Medrol 125 mg IV and 20 mg of Pepcid IV. Patient reevaluation She has maintained her airway, she is slightly shaky which is to be expected. No return of the facial swelling or wheezing noted at this time. Will continue to observe. Care is to be handed off to oncoming provider Jj Ramos DO for observation reevaluation, most likely disposition will be discharged home with EpiPen's and possibly steroid stent. Discussed plan of care and observation with patient and family who verbalized understanding. At the time of this dictation patient is hemodynamically stable, alert and oriented 96% on room air. This text was generated using [employer] dictation system, please disregard any oddities of phrase or misspellings. Quality:SDOH Health Related Social Needs: No Data to Display PFSH All Active Problems Vulvitis (Acute 08/14/09) Essential hypertension (Acute 03/23/15) Tendinitis of long head of biceps brachii of left shoulder (Acute) Impingement syndrome of left shoulder (Acute) Bursitis of left shoulder (Acute) Medical History Infundibular follicular cyst of skin Follicular cyst of skin Tick-borne disease Abdominal pain, left lower quadrant Rotator cuff tear Irritable bowel syndrome with diarrhea Pancreatic cyst Oral lichenoid mucositis History of diverticulitis Thyromegaly Steatosis of liver Polyp of colon Skin lesion of face Breast cancer screening Neoplasm of uncertain behavior Greater trochanteric bursitis History of squamous cell carcinoma of skin Facial lesion Diverticulosis Blepharitis of both eyes Shingles 01/13/2019 Oral lichen planus Zoon's vulvitis 2004 Babesiosis 1987 Osteoarthritis knee Non-alcoholic fatty liver disease HTN (hypertension) Hyperlipidemia Surgical History History of shoulder surgery left rotator cuff surgery & bicep S/P colonoscopy 2010- sessile serrated adenoma History of cataract extraction with lens replacement bilaterally Hx of biopsy vulvar punch biopsy Hx of arthroscopy of left knee meniscus repair Cholecystectomy (~02/2010) Family History Mother Essential hypertension Diabetes Heart disease Hyperlipidemia Father Essential hypertension Diabetes Heart disease Hyperlipidemia Sister Personal history of malignant neoplasm CERVICAL Hyperlipidemia Grandfather Heart disease Grandfather No problems noted. Grandmother Heart disease Grandmother Essential hypertension Diabetes Heart disease Hyperlipidemia Social History Smoking/Tobacco Use Status: Former Tobacco Use Quit Date: 10/15/72 Smoking risk assessment performed?: Yes Alcohol Intake: never Drug use: Never Substance use type: does not use Housing: apartment Current gender identity: female Do you feel safe at home: Yes Do you feel safe in your relationship?: Yes
[2024-11-01] MEDS: Famotidine 20 MG/2 ML VIAL IVP (22:04)
[2024-11-01] MEDS: methylPREDNISolone SUCC 125 MG VIAL IVP (22:07)
[2024-11-02] VITALS (20 sets, daily range): BP systolic 117–145; BP diastolic 51–74; PULSE 87–97; RESP 9–27; TEMP 36.4; O2SAT 91–96
--- NOTE | 2024-11-02 02:06 | ED.PROG_ITS ---
Date of service: 11/02/24 Time of Service: 02:06 Medical Decision Making Patient was signed out to me pending observation and reassessment. Please refer to Sylvia Armendariz's HPI, physical exam, assessment plan. On reassessment patient is feeling much better. All symptoms have completely resolved, she has been notably stable, and shows no signs of anaphylaxis wheeze nausea vomiting or other abnormality. Clinically she demonstrates no physical exam findings that are concerning for evidence of persistent anaphylaxis at this time. Patient will be discharged home with an EpiPen for home,'s prescription for EpiPen, and 4 more days of prednisone. Recommend avoidance of inhaler at this time although it is not clear if this is the actual cause. Discussed red flags for which to return. I have extensively reviewed the treatment plan and discharge instructions with the patient and their family. I have addressed all patient concerns at this time. The patient and family was made aware of what symptoms to monitor for that would warrant a return to the emergency department. Discussed the plan with the patient and family, they demonstrate verbal understanding and agreement with our assessment and plan at this time. The documentation in this chart was dictated using [employer] dictation software. Please excuse any dictation errors. Quality:SDOH Health Related Social Needs: No Data to Display Critical Care Time Critical Care Time Critical Care Time: Yes Total Critical Care Time: 45 Attestation: Upon my evaluation, this patient had a high probability of imminent or life- threatening deterioration, which required my direct attention, intervention, and personal management. I have personally provided 45 minutes of critical care time exclusive of time spent on separately billable procedures. Time includes review of laboratory data, radiology results, discussion with consultants, and monitoring for potential decompensation. Interventions were performed as documented. Discharge Plan Disposition Patient Disposition: Home Condition: Stable Discharge Details Clinical Impression: Allergic reaction, Anaphylaxis Primary Care Provider: Lily Tadeo ED Provider: Tavares Ramos Home Meds and New Rx's Prescriptions: New epinephrine [EpiPen 2-Nathan] 0.3 mg/0.3 mL auto-injector 0.3 mg IM Q5-15M PRN (Reason: anaphylaxis) Qty: 2 0RF Rx Instructions: do not exceed 3 doses per episode prednisone 50 mg tablet 50 mg PO DAILY Qty: 4 0RF loratadine 10 mg tablet 10 mg PO DAILY Qty: 20 0RF No Action valacyclovir [Valtrex] 500 mg tablet 500 mg PO DAILY milk thistle 175 mg tablet 175 mg PO TID albuterol sulfate [Ventolin HFA] 90 mcg/actuation HFA aerosol inhaler 1 inh IH ONCE PRN cbd silk topical PRN Rx Instructions: topical cream dexamethasone 0.5 mg/5 mL elixir 0.5 mg PO QID PRN Rx Instructions: rinse and spit Citrucel 500 mg tablet 1,000 mg PO QHS Saccharomyces boulardii 10 billion cell capsule PO BID Rx Instructions: 3 Billion Systane Complete 0.6 % drops 1 drp ophthalmic (eye) DAILY PRN multivitamin Tablet 1 tab PO DAILY valacyclovir [Valtrex] 500 mg tablet 1,000 mg PO DAILY cyclosporine [Restasis] 0.05 % dropperette 1 drp ophthalmic (eye) Q12H gabapentin 300 mg capsule 300 mg PO QHS Citrucel 500 mg tablet 1,000 mg PO DAILY formula 303 PO vitality boost PO hydrochlorothiazide 12.5 MG tablet 12.5 mg PO DAILY Qty: 90 acetylcysteine [NAC] PO potassium chloride 40 mEq/15 mL liquid 20 meq PO DAILY rosuvastatin 10 mg tablet 10 mg PO DAILY meclizine 25 mg tablet 25 mg PO DAILY PRN Systane Ultra (PF) 0.4-0.3 % dropperette 1 drp ophthalmic (eye) DAILY PRN acetaminophen [Tylenol Extra Strength] 500 mg tablet 1,000 mg PO Q6H PRN simethicone [Gas-X] PO TID alpha lipoic acid 300 mg capsule 600 mg PO QAM gabapentin 300 mg capsule 300 mg PO DAILY lysine 500 mg tablet 1,000 mg PO BID naltrexone 4.5 mg PO QHS pimecrolimus 1 % cream 1 applic TOPICAL BID PRN Patient Comments: APPLY TO AFFECTED AREA S TWO TIMES A DAY FOR 42 DAYS lidocaine-prilocaine 2.5-2.5 % cream 1 applic topical BID PRN Patient Comments: APPLY TOPICALLY DIRECTED TO THE AFFECTED AREA TWO TIMES A DAY NEEDED benzonatate 100 mg capsule 100 mg PO TID PRN Patient Comments: TAKE ONE CAPSULE BY MOUTH THREE TIMES A DAY NEEDED oxycodone-acetaminophen [Percocet] 5-325 mg tablet 1 tab PO Q6H PRN (Reason: pain) Qty: 7 0RF dicyclomine 20 mg tablet 10 mg PO TID cyclosporine [Restasis] 0.05 % Dropperette 1 drp OPHTHALMIC (EYE) BID Refresh Repair 0.5-0.9 % Drops 1 drp OPHTHALMIC (EYE) BID-QID PRN Discharge Instructions Instructions: Allergic Reaction ED Additional Instructions: At this time your symptoms have resolved, and you no longer show any evidence to suggest anaphylaxis. Please take the prednisone and loratadine as prescribed. Please avoid use of the inhaler. If you notice any worsening of your symptoms, or any new symptoms such as vomiting, diarrhea, fever, chills, shortness of breath, chest pain, numbness, weakness, or fainting , please return immediately to the emergency department for reevaluation. Please follow up with your primary care provider as soon as possible for reassessment and reevaluation. As always, it was a pleasure participating in your medical care today. Referrals: Lily Tadeo [Primary Care Provider] -
[2024-11-02] MEDS: EPINEPHrine 0.3 MG KIT IM (02:08)
== END 2024-11-02 02:20 | disposition home or self-care (01) ==
PROVIDERS: Emergency Provider Student in an Organized Health Care Education/Training Program; PCP Nurse Practitioner Family
DX: T78.40XA Allergy, unspecified, initial encounter (principal); T78.2XXA Anaphylactic shock, unspecified, initial encounter
CPT/HCPCS: 00123; 96374; 96375; 99291; J0171; J2919

== ENCOUNTER 2025-01-08 14:59 | Outpatient (REF) | payer MEDICARE, MEDICAID, SELFPAY ==
[2025-01-08 15:06] LABS: NT-proBNP 56 pg/mL (<300); Potassium 3.7 mmol/L (3.5-5.1)
== END 2025-01-08 15:00 | disposition home or self-care (01) ==
LOC: NCHCN 14:59
PROVIDERS: PCP Nurse Practitioner Family; Visit Provider Nurse Practitioner Family
DX: R06.00 Dyspnea, unspecified (principal); E87.6 Hypokalemia
CPT/HCPCS: 83880; 84132

== ENCOUNTER 2025-01-13 02:35 | Outpatient (CLI) | payer MEDICARE, MEDICAID, SELFPAY ==
[2025-01-13] MEDS: Inhaler, Assist Device 1 EACH MC (15:36)
[2025-01-13] MEDS: Methacholine 100 MG VIAL IH (15:36)
[2025-01-13] MEDS: Albuterol HFA 18 GM 200 PUFF INH IH (15:37)
--- NOTE | 2025-01-13 16:20 | W.PFT ---
Date of service: 01/13/25 Time of Service: 12:59 Pulmonary Function Test Result Indications: Dyspnea Interpretation Spirometry: No airflow limitation. There was a 24% decrease in FEV1 with administration of 8mg/mL methacholine. Lung Volumes: Normal lung volumes Diffusion Capacity: Normal diffusion Airway Pressure: Normal airways resistance Impression Normal pulmonary function testing with a borderline positive methacholine challenge. Clinical Correlation therefore is recommended.
== END 2025-01-13 02:36 | disposition home or self-care (01) ==
LOC: RT 02:36
PROVIDERS: PCP Nurse Practitioner Family; Visit Provider Student in an Organized Health Care Education/Training Program
DX: R06.00 Dyspnea, unspecified (principal)
CPT/HCPCS: 94060; 94070; 94726; 94729; 95070; J7674

== ENCOUNTER 2025-02-04 02:08 | Outpatient (CLI) | payer MEDICARE, MEDICAID, SELFPAY ==
--- NOTE | 2025-02-04 12:30 | DI.US_ITS ---
APPROVED REPORT EXAM: Comprehensive 2D, Doppler, and color-flow Echocardiogram Patient Location: Out-Patient Operations Welder: Elier Carrillo RDCS (AE) Indications: Dyspnea Conclusion Normal left ventricular wall thickness and chamber size. Ejection fraction is 60 to 65%. Wall motio n is normal Normal right ventricular size and function Both atria are normal in size There is no structural or hemodynamically significant valvular disease Estimated right ventricular systolic pressure is 24 mmHg Ascending aorta measures 3.41 cm Wall motion Left Ventricle The left ventricle is normal size. The left ventricular systolic function is normal. The left ventric ular ejection fraction is within the normal range. There is normal left ventricular wall thickness. T here is normal LV segmental wall motion. There is no ventricular septal defect visualized. LVEF is 60 -65%. Right Ventricle The right ventricle is normal size. The right ventricular systolic function is normal. Atria The left atrium size is normal. The right atrium size is normal. The interatrial septum is intact wit h no evidence for an atrial septal defect. Aortic Valve The aortic valve is normal in structure. Aortic valve is trileaflet. There is no aortic valvular sten osis. Trace aortic regurgitation. Mitral Valve The mitral valve is normal in structure. No evidence of mitral valve stenosis. There is no mitral kerline ve regurgitation noted. Tricuspid Valve The tricuspid valve is normal in structure. There is no tricuspid valve stenosis. Trace tricuspid reg urgitation. The RVSP is 25 mmHg. Pulmonic Valve The pulmonary valve is normal in structure. There is no pulmonic valvular stenosis. There is no pulmo emanuel valvular regurgitation. Great Vessels The aortic root is normal in size. The ascending aorta is mildly dilated. Aortic arch is normal in ca liber. IVC is normal in size and collapses >50% with inspiration. Pericardium There is no pericardial effusion. 2D Dimensions IVSD d PLAX 0.89 cm F: 0.6-1.0 Ao Root d 3.18 cm F: 2.7 - 3.3 LVPW d PLAX 0.86 cm F: 0.6 - 1.0 Ao Asc Diam d 3.42 cm F: 2.3 - 3.1 LVID d PLAX 4.08 cm F: 3.8 - 5.2 LVDs 2.71 cm F: 2.2 - 3.5 LV EF Teichholz 62.7 % FS 33.50 % LV EDV (Teich) 73.3 mL LV ESV (Teich) 27.3 mL Stroke Vol Index (Teich) 29.11 M-Mode TAPSE 2.49 cm (M/F) >1.7 Auto EF LV EDV A4C 55.2 mL LV EDV A2C 66.2 mL LV EDV BP 60.5 mL LV ESV A4C 22.3 mL LV ESV A2C 24.7 mL LV ESV BP 23.1 mL LVEF(%) A4C 59.6 % LVEF(%) A2C 62.7 % LVEF(%) BP 61.7 % LV SV A4C 32.9 ml LV SV A2C 41.5 ml LV SV BP 37.3 ml LV CO A4C 2.5 L/min LV CO A2C 3.9 L/min LV CO BP 3.2 L/min HR A4C 74.54 BPM HR A2C 93.75 BPM LV EDV Index (BP) LA Volume LA Length A4C 3.4 cm LA Length A2C 2.7 cm LA Area A4C s 9.02 cm2 LA Area A2C s 6.00 cm2 LA Vol A4C A-L 20.17 mL LA Vol A2C A-L 11.25 mL LA Vol Biplane A-L 16.9 mL LA Vol/BSA A4C A-L LA Vol/BSA A2C A-L LA Vol/BSA BP A-L 10.7 mL/m2 LA Vol A4C MOD 18.7 mL LA Vol A2C MOD 10.3 mL LA Vol BP MOD 15.6 mL RA Volume RA Area A4C 7.0 cm2 RA ESV A4C (A-L) 11.3mL RA Vol/BSA A4C A-L RA Length A4C 3.6 cm RA ESV A4C (MOD) 10.1mL LV Diastology MV E' medial 0.065 (>0.07 m/s) MV E Vmax 0.49 (0.4-1.3 m/s) MV E/E' MED 7.57 (<14) MV A Vmax 0.70 (0.4-1.3 m/s) MV E' lateral 0.061 (>0.1 m/s) E/A Ratio 0.7 MV E/E' LAT 8.01 (<14) MV E' Average 0.063 m/s MV E/E'(average) 7.78 Aortic Valve AoV Vmax 1.06 m/s LVOT Vmax 1.02 m/s AoV Peak Grad 4.5 mmHg LVOT Peak Grad 4.1 mmHg AoV Area (Vmax) 2.44 cm2 LVOT VTI 0.186 m AoV VTI 0.210 m LVOT Mean Grad 1.7 mmHg AoV Mean Sukhwinder. 0.71 m/s LVOT SV 47.41 mL AoV Mean Grad 2.3 mmHg LVOT Diam s 1.80 cm AoV Area (VTI) 2.26 cm2 AV Regurg Peak Gr. 4.50 mmHg Velocity Ratio 0.96 Mitral Valve MV DT 199 (160-240 msec) Pulmonary Valve PV Vmax 0.80 (0.5-1.5 m/s) RVOT Vmax 0.68 m/s PV Peak Grad 2.5 mmHg RVOT Peak Gr. 1.8 mmHg PV Mean Sukhwinder 0.57 m/s RVOT VTI 0.142 m PV Mean Grad 1.4 mmHg RVOT Mean Gr. 1.2 mmHg Tricuspid Valve RA Pressure 3.00 mmHg TR Vmax 2.32 m/s TV S' 0.17 m/s TR Peak Grad 21.5 mmHg RVSP (TR) 24.5 mmHg
== END 2025-02-04 02:28 ==
LOC: DI 02:08
PROVIDERS: PCP Nurse Practitioner Family; Visit Provider Internal Medicine Cardiovascular Disease
DX: R06.00 Dyspnea, unspecified (principal)
CPT/HCPCS: 93306

== ENCOUNTER 2025-02-12 19:40 | Emergency (ER) | payer MEDICARE, MEDICAID, SELFPAY ==
[2025-02-12 19:44] VITALS: BP 128/87; PULSE 92; RESP 14; TEMP 36.5; O2SAT 100
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
[2025-02-12] MEDS: diphenhydrAMINE 50 MG/ML VIAL 25 MG IVP (20:26)
[2025-02-12] MEDS: Famotidine 20 MG/2 ML VIAL IVP (20:26)
[2025-02-12] MEDS: methylPREDNISolone SUCC 125 MG VIAL IVP (20:26)
[2025-02-12 21:07] VITALS: BP 141/59; PULSE 86; RESP 14; O2SAT 95
[2025-02-12 21:22] VITALS: BP 141/59; PULSE 86; RESP 14; O2SAT 95
== END 2025-02-12 21:28 | disposition home or self-care (01) ==
PROVIDERS: Emergency Provider Emergency Medicine; PCP Nurse Practitioner Family
DX: T78.04XA Anaphylactic reaction due to fruits and vegetables, initial encounter (principal); I10 Essential (primary) hypertension; E78.5 Hyperlipidemia, unspecified; Z91.018 Allergy to other foods
CPT/HCPCS: 83520; 96374; 96375; 99284; 99283; J1200; J2919

== ENCOUNTER 2025-04-09 15:38 | Outpatient (CLI) | payer MEDICARE, MEDICAID, SELFPAY ==
[2025-04-14 16:55] LABS: Galactose-alpha-1,3 IgE <0.10 kU/L (<0.70)
[2025-04-16 15:11] LABS: Histamine Plasma 0.84 ng/mL (0-1.0)
== END 2025-04-09 15:39 | disposition home or self-care (01) ==
LOC: LBO 15:39
PROVIDERS: PCP Nurse Practitioner Family; Visit Provider Nurse Practitioner Family
DX: T78.2XXA Anaphylactic shock, unspecified, initial encounter (principal)
CPT/HCPCS: 36415; 86003; 83088

== ENCOUNTER 2025-07-14 03:20 | Outpatient (CLI) | payer MEDICARE, MEDICAID, SELFPAY ==
[2025-07-14] MEDS: Levalbuterol HFA 15 GM INH 4 PUFF IH (11:14)
[2025-07-14] MEDS: Inhaler, Assist Device 1 EACH MC (11:14)
--- NOTE | 2025-07-16 10:12 | PFT_ITS ---
Date of service: 07/14/25 Time of Service: 09:59 Pulmonary Function Test Result Indications: Asthma Impression 1. Good patient effort was noted. ATS standards for reproducibility were met. 2. Spirometry showed mild obstructive lung disease with an FEV1 of 93% (1.71 L) 3. Following the administration of a bronchodilator there was not a significant response 4. Maximal expiratory pressure was 98 cmH2O, which is normal. Maximal inspir atory pressure was reduced at -30 cmH2O
== END 2025-07-14 03:21 | disposition home or self-care (01) ==
LOC: RT 03:20
PROVIDERS: PCP Nurse Practitioner Family; Visit Provider Internal Medicine Pulmonary Disease
DX: J45.909 Unspecified asthma, uncomplicated (principal); J44.9 Chronic obstructive pulmonary disease, unspecified
CPT/HCPCS: 94060

== ENCOUNTER 2025-08-26 15:29 | Outpatient (REF) | payer MEDICARE, MEDICAID, SELFPAY ==
[2025-08-26 21:05] LABS: Vitamin D 25 Total 39 ng/mL (30-100)
[2025-08-26 21:10] LABS: ALT 22 U/L (10-49); AST 33 U/L (<34); Albumin 4.8 g/dL (3.4-5.0); Alkaline Phosphatase 64 U/L (46-116); Anion Gap 13.1 mmol/L (3-11); BUN 10 mg/dL (9-23); Bilirubin, Total 0.70 mg/dL (0.2-1.2); CO2 26.9 mmol/L (20.0-31.0); Calcium 9.9 mg/dL (8.3-10.6); Chloride 102 mmol/L (98-107); Glucose 92 mg/dL (74-106); Magnesium 1.9 mg/dL (1.6-2.6); Potassium 3.4 mmol/L (3.5-5.1); Sodium 142 mmol/L (136-145); Total Protein 7.2 g/dL (5.7-8.2)
[2025-08-26 21:14] LABS: Hemoglobin A1C 5.5 % (<5.7)
== END 2025-08-26 15:30 | disposition home or self-care (01) ==
LOC: NCHCN 15:29
PROVIDERS: PCP Nurse Practitioner Family; Visit Provider Nurse Practitioner Family
DX: K21.9 Gastro-esophageal reflux disease without esophagitis (principal); K86.9 Disease of pancreas, unspecified; I10 Essential (primary) hypertension; E55.9 Vitamin D deficiency, unspecified
CPT/HCPCS: 80053; 82306; 83036; 83735